=== PATIENT | female | born 1960 | race Caucasian/White ===

== ENCOUNTER 2024-03-30 09:13 | Outpatient (AMB) | payer OTHER, SELFPAY ==
--- NOTE | 2024-03-30 09:20 | A.OFFVIS_ITS ---
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 Noriega. She has a past medical history of alcohol abuse with episodic drinking behavior, morbid obesity, hyperlipidemia, hypertension, type 2 diabetes, and nephrolithiasis. She presents to the office today as a new patient for ongoing left-sided flank pain and nephrolithiasis. In discussion with the patient today she reports having followed up with [facility] last year and underwent left-sided ureteroscopy for a 7 mm stone and has since had ongoing left-sided flank pain. She reports following up with her PCP and discussing 2nd opinion at which time urology referral was made. She continues to report intermittent left-sided flank pain that she feels radiates to her left upper abdominal area. She discusses at length and becomes tearful throughout today's visit discussing ongoing issue she is having at home with her . We discussed referral to therapy for further assessment evaluation however patient declines. Patient was provided information regarding resources if she would like. 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 In office urinalysis results reviewed with the patient today. We discussed at length potential causes of left-sided flank pain she is experiencing. She otherwise denies urinary urgency, urinary frequency, inco ntinence, nocturia, hematuria, dysuria, foul smelling urine, changes to urinary stream, fever, and or chills. She is happy with her current voiding parameters. We discussed obtaining retroperitoneal ultrasound for further assessment evaluation. She otherwise offers no other issues or concerns at this time. [facility] Medical History Alcohol abuse, episodic drinking behavior Chronic bilateral low back pain with bilateral sciatica Morbid obesity Mixed hyperlipidemia Essential hypertension Type 2 diabetes mellitus without complication Review of Systems Const All systems reviewed & are unremarkable except as noted in HPI and below Physical Exam Const General: cooperative, comfortable, no acute distress, well developed, alert, awake and poor hygiene Nutritional Appearance: overweight Orientation/consciousness: patient oriented x3 Limitations: no limitations HEENT Head: Yes normal to inspection, Yes normocephalic and Yes atraumatic Ears: hearing grossly normal bilaterally Eyes General: appearance normal, both eyes and all related structures Neck Neck: Yes normal visual inspection and Yes trachea midline Chest Chest palpation & inspection: normal inspection of the chest Resp Effort & Inspection: normal respiratory effort and able to speak in complete sentences Cardio Rate: regular rate GI Inspection: Yes normal to inspection General: Yes no CVA tenderness Back/Spine/Pelvis Back: no CVA tenderness Skin General skin exam: no rashes or lesions noted Neuro General: patient oriented x3 Extrem General: Yes normal to inspection Psych Appearance: grossly normal Mental Status: mental status grossly normal Speech and movement: Normal speech and movement present and Clear speech present Affect: Sad affect present Attitude: cooperative Thought process: Normal thought process present Thought content: Normal thought content present Insight: Fair insight present (Psych) Judgement: Fair judgement present (Psych) Results AMB Urinalysis, Automated UA Leukoctes 15 Cyndy/uL Last Edit by Arlene Nunez on 03/30/24 09:56 UA Nitrite Last Edit by Arlene Nunez on 03/30/24 09:56 UA Urobilinogen 0.2 mg/dL Last Edit by Arlene Nunez on 03/30/24 09:56 UA Protein 15 mg/dL Last Edit by Arlene Nunez on 03/30/24 09:56 UA pH 6.0 Last Edit by Arlene Nunez on 03/30/24 09:56 UA Blood 0 Sascha/uL Last Edit by Arlene Nunez on 03/30/24 09:56 UA Specific [place] 1.015 Last Edit by Arlene Nunez on 03/30/24 09:56 UA Ketone Negative Last Edit by Arlene Nunez on 03/30/24 09:56 UA Bilirubin 0 mg/dL Last Edit by Arlene Nunez on 03/30/24 09:56 UA Glucose 0 mg/dL Last Edit by Arlene Nunez on 03/30/24 09:56 Results Reviewed Results Reviewed: Laboratory Last Values Urine pH (Auto) 6.0 03/30/24 09:55 Specific [place] (Auto) 1.015 03/30/24 09:55 Urine Protein (Auto) 15 mg/dL 03/30/24 09:55 Glucose (UA)(Auto) 0 mg/dL 03/30/24 09:55 Urine Ketones (Auto) Negative 03/30/24 09:55 Urine Blood (Auto) 0 Sascha/uL 03/30/24 09:55 Urine Bilirubin (Auto) 0 mg/dL 03/30/24 09:55 Urine Urobilinogen (Auto) 0.2 mg/dL 03/30/24 09:55 Leukocyte Esterase (Auto) 15 Cyndy/uL 03/30/24 09:55 Assessment & Plan Assessment & Plan (1) Flank pain: Code(s): R10.9 - Unspecified abdominal pain Category: Medical (2) Nephrolithiasis: Code(s): N20.0 - Calculus of kidney Category: Medical Plan In office urinalysis results reviewed with the patient today; as noted above; no microscopic hematuria noted today. We discussed at length potential causes of microscopic hematuria. Will obtain retroperitoneal ultrasound for further assessment evaluation. Discussed potential causes of left-sided flank pain patient continues to experience. Information provided regarding behavioral therapy. ([facility] [phone], [facility] [phone], and [facility] a change [phone]) Discussed, educated, and stressed the importance of adequate hydration relation to history of nephrolithiasis as well as overall health and well-being. Discussed adding 1 oz of lemon juice to water daily. Follow-up in 1-3 months with imaging to be completed prior; or sooner with any issues, concerns, and or questions. Orders: Orders US retroperitoneal comp Today N20.0 - Calculus of kidney, R10.9 - Unspecified abdominal pain AMB Urinalysis Automated Today Z13.9 - Encounter for screening, unspecified Patient Instructions: The patient had an opportunity to ask questions regarding the treatment plan. All questions were answered. Physical exam, labs, and imaging were discussed and reviewed in detail. As well as risks, benefits, and discussion of treatment choices. No major barriers to understanding were identified. The patient expressed understanding and agreement with the above treatment plan. The patient was made aware they should contact our office by phone for worsening of their current condition, the appearance of new symptoms, or with any questions or concerns. Compliance is encouraged with any medications and follow up testing that is ordered. It is a privilege to be allowed the opportunity to participate in? your urological care.? Again, if you have any questions or concerns If you have any questions or concerns please do not hesitate to contact me. The office is [phone]. This note is constructed using voice recognition software. While every effort has been made to ensure accuracy surgeon/president errors may have been included. Yours sincerely, PAVAN Gibbons Coding Level of Care Code New Pt Level 3 (80069) Diagnoses Flank pain R10.9 Nephrolithiasis N20.0
== END 2024-03-30 09:47 | disposition home or self-care (01) ==
PROVIDERS: PCP Family Medicine; Visit Provider Nurse Practitioner Family
DX: R10.9 Unspecified abdominal pain (principal); N20.0 Calculus of kidney; Z13.9 Encounter for screening, unspecified
CPT/HCPCS: 99203

== ENCOUNTER → 2024-03-30 09:13 | Outpatient (BNVA) | payer OTHER, SELFPAY | PROVIDERS: PCP Family Medicine; Visit Provider Nurse Practitioner Family | DX: R31.29 Other microscopic hematuria (principal); R10.9 Unspecified abdominal pain; N20.0 Calculus of kidney | CPT/HCPCS: 81003 ==

== ENCOUNTER 2024-04-30 09:56 | Outpatient (REF) | payer OTHER, SELFPAY ==
--- OUTSIDE RECORDS SUMMARY | 2024-04-30 09:59 | XMS_ITS ---
Author Organization [facility], Address [address] [place] [address] Care Team Providers Care Health Safety Coordinator Name Role Phone Eric Chávez [phone] ALLERGIES, ADVERSE REACTIONS, ALERTS Substance Code Code System Type Reaction Severity Status Start Date End Date Penicillins RxNorm Drug allergy () 0 MEDICATIONS Medication Code Code System Start Date Stop Date Route Dosage Directions Fill Instructions metformin HCl RxNorm 024 1 albuterol sulfate 0 RxNorm inhalation sertraline HCl RxNorm 07/15/19 24 1 amlodipine 0 RxNorm oral montelukast sodium RxNorm 2022 1 Bactrim DS 200243 RxNorm 12/14/19 24 oral 1 hydrochlorothiazid e RxNorm 024 Spiriva Respimat 0 RxNorm inhalation PROBLEMS Problem Name Code Code System Start Date End Date Stat us Unspecified asthma 413984035 [facility] A ctive Major depressive disorder, recurrent, unspecified 11920594 [facility] Activ e Essential (primary) hypertension 61058978 [facility] Active Type 2 diabetes mellitus 48775556 [facility] Active Hematuria, unspecified 08654349 [facility] 12/14/2023 Active Pyuria 8847508 [facility] 12/14/2023 Active ENCOUNTERS Encounter Diagnosis Code Code System Date Stat us Hematuria, unspecified 13163788 [facility] 12/14/2023 Ac tive Pyuria 6601954 [facility] 12/14/2023 Active IMMUNIZATIONS * None VITAL SIGNS Code Code System Vitals Name Date Value and Un its 8462-4 [facility] Blood Pressure-Diastolic 12/14/2023 85 mmHg 8480-6 [facility] Blood Pressure-Systolic 12/14/2023 1 27 mmHg 8867-4 [facility] Heart Rate 12/14/2023 90 /min 9279-1 [facility] Respiratory Rate 12/14/2023 18 /min 8310-5 [facility] Body Temperature 12/14/2023 97.4 F 07278-7 [facility] Oxygen Saturation 12/14/2023 95 % SOCIAL HISTORY * None PROCEDURES * None RESULTS Test Code Code System Description Result Value Date Ref erence Range [facility] Glucose Negative 12/14/2023 [facility] Bilirubin Negative 12/14/2023 [facility] Ketone Negative 12/14/2023 [facility] Specific [place] 1.30347 12/14/2023 [facility] Blood 1.44588 12/14/2023 [facility] pH 6.59609 12/14/2023 [facility] Protein Negative 12/14/2023 [facility] Urobilinogen 0.60771 E.U./dL 12/14/2023 [facility] Nitrite Negative 12/14/2023 [facility] Leukocytes 1.64156 12/14/2023 [facility] Color [place] 12/14/2023 [facility] Clarity Cloudy 12/14/2023 630-4 [facility] Urine Culture, Routine Final report 12/14/2023 [facility] Result 1 Results Receive d - See Detailed Notes 12/14/2023 MEDICAL EQUIPMENT * Patient has no history of implantable devices ASSESSMENT Assessment You were evaluated for the r ecurrent episode of flank pain, back pain, with an abnormal urinalysis. I am starting you on antibiotics, however, given your episodes of this in the past with negative workup it is quite possible the urine culture is going to be negative and this is not an infectious cause.Take the antibiotics for the time being until the culture returns. If the culture is negative I recommend stopping the antibiotics.I would speak with your primary care doctor or a urologist regarding workup for a condition called loin pain hematuria syndrome, which is a diagnosis of exclusion after ruling out other causes of the pain and hematuria. If you develop a fever or worsening symptoms please go to the ER. TREATMENT PLAN Type Description Date MEDICATION Take 800-160 mg tablet 12/14/2023 APPOINTMENT If not feeling domonique r in 3 day(s), please see your primary care physician. If you do not have a primary care physician, please return to this clinic. 12/14/2023 Labs Tests Test Name Code Code System Date Clinitek Urinalysis, automated, without microscopy 810 03 CPT 12/14/2023 Urine Culture, Routine 74560 CPT 024 GOALS * None HEALTH CONCERNS * No Health Concerns FUNCTIONAL AND COGNITIVE STATUS * None CONSULTATION NOTES * None DISCHARGE SUMMARY NOTES * None HISTORY AND PHYSICAL NOTES * None IMAGING NOTES * None LABORATORY REPORT NARRATIVE NOTES * None PATHOLOGY REPORT NARRATIVE NOTES * None PROGRESS NOTES * None
== END 2024-04-30 09:57 | disposition home or self-care (01) ==
LOC: HO.US 09:56
PROVIDERS: PCP Family Medicine; Visit Provider Nurse Practitioner Family
DX: N20.0 Calculus of kidney (principal); R10.9 Unspecified abdominal pain
CPT/HCPCS: 76770

== ENCOUNTER 2024-05-27 10:42 | Outpatient (AMB) | payer OTHER, SELFPAY ==
--- NOTE | 2024-05-27 10:45 | MHC.OFFVIS ---
Intake Visit Reasons: 2m/US(set) Intake Note: Patient is present for Ultrasound results Urology Med: None Antibiotic Allergies: Penicillins Blood Thinner: None Tool Adjuster Required: No Accompanied by: Self / Same As Patient Allergies Penicillins Allergy (Verified 05/27/24 10:58) rash Medication List - Last Reconciled 05/27/24 by PAVAN Gibbons clonidine HCl 0.1 mg PO BID hydrochlorothiazide 12.5 mg PO DAILY metformin 500 mg PO BID montelukast 10 mg PO DAILY semaglutide (Ozempic) mg subcut sertraline 100 mg PO DAILY HPI Comments Details: Taty is a 63-year-old female patient of Dr. Noriega. She has a past medical history of alcohol abuse with episodic drinking behavior, morbid obesity, hyperlipidemia, hypertension, type 2 diabetes, and nephrolithiasis. She presents to the office today for follow-up. Of note, patient was seen approximately 2 months ago as a new patient for nephrolithiasis and ongoing flank pain she has been experiencing. Recent unofficial retroperitoneal ultrasound results reviewed with the patient today. Right kidney with no calculi, lesions, or hydronephrosis. Left kidney with nonobstructing mid pole 3 mm. Pre void bladder volume is a proximally 360 mL. Postvoid bladder volume is a proximally 25 mL. Question elongated bladder. Incidental question right uterus fibroid. She continues to experience bilateral flank pain. In office urinalysis results reviewed with the patient today. We discussed at length potential causes of bilateral flank pain. We discussed and stressed the importance of adequate hydration relation to nephrolithiasis as well as overall health and well-being. She otherwise denies any bothersome urinary issues. She denies urinary urgency, urinary frequency, incontinence, nocturia, hematuria, dysuria, foul smelling urine, changes to urinary stream, fever, and or chills. She is happy with her current voiding parameters. She otherwise offers no other issues or concerns at this time. [facility] Medical History Alcohol abuse, episodic drinking behavior Chronic bilateral low back pain with bilateral sciatica Morbid obesity Mixed hyperlipidemia Essential hypertension Type 2 diabetes mellitus without complication Review of Systems Const All systems reviewed & are unremarkable except as noted in HPI and below Physical Exam Const General: cooperative, comfortable, no acute distress, well developed, alert, awake and poor hygiene Nutritional Appearance: overweight Orientation/consciousness: patient oriented x3 Limitations: no limitations HEENT Head: Yes normal to inspection, Yes normocephalic and Yes atraumatic Ears: hearing grossly normal bilaterally Eyes General: appearance normal, both eyes and all related structures Neck Neck: Yes normal visual inspection and Yes trachea midline Chest Chest palpation & inspection: normal inspection of the chest Resp Effort & Inspection: normal respiratory effort and able to speak in complete sentences Cardio Rate: regular rate GI Inspection: Yes normal to inspection General: Yes no CVA tenderness Back/Spine/Pelvis Back: no CVA tenderness Skin General skin exam: no rashes or lesions noted Neuro General: patient oriented x3 Extrem General: Yes normal to inspection Psych Appearance: grossly normal Mental Status: mental status grossly normal Speech and movement: Normal speech and movement present and Clear speech present Affect: Sad affect present Attitude: cooperative Thought process: Normal thought process present Thought content: Normal thought content present Insight: Fair insight present (Psych) Judgement: Fair judgement present (Psych) Results AMB Urinalysis, Automated UA Leukoctes 0 Cyndy/uL Last Edit by Leslie Villarreal [facility] on 05/27/24 10:56 UA Nitrite Negative Last Edit by Leslie Villarreal [facility] on 05/27/24 10:56 UA Urobilinogen 0.2 mg/dL Last Edit by Leslie Villarreal [facility] on 05/27/24 10:56 UA Protein 0 mg/dL Last Edit by Leslie Villarreal [facility] on 05/27/24 10:56 UA pH 6.5 Last Edit by Leslie Villarreal [facility] on 05/27/24 10:56 UA Blood 0 Sascha/uL Last Edit by Leslie Villarreal [facility] on 05/27/24 10:56 UA Specific [place] 1.010 Last Edit by Leslie Villarreal [facility] on 05/27/24 10:56 UA Ketone Negative Last Edit by Leslie Villarreal [facility] on 05/27/24 10:56 UA Bilirubin 0 mg/dL Last Edit by Leslie Villarreal [facility] on 05/27/24 10:56 UA Glucose 0 mg/dL Last Edit by Leslie Villarreal [facility] on 05/27/24 10:56 Results Reviewed Results Reviewed: Laboratory Last Values Urine pH (Auto) 6.5 05/27/24 10:51 Specific [place] (Auto) 1.010 05/27/24 10:51 Urine Protein (Auto) 0 mg/dL 05/27/24 10:51 Glucose (UA)(Auto) 0 mg/dL 05/27/24 10:51 Urine Ketones (Auto) Negative 05/27/24 10:51 Urine Blood (Auto) 0 Sascha/uL 05/27/24 10:51 Urine Nitrite (Auto) Negative 05/27/24 10:51 Urine Bilirubin (Auto) 0 mg/dL 05/27/24 10:51 Urine Urobilinogen (Auto) 0.2 mg/dL 05/27/24 10:51 Leukocyte Esterase (Auto) 0 Cyndy/uL 05/27/24 10:51 Assessment & Plan Assessment & Plan (1) Flank pain: Code(s): R10.9 - Unspecified abdominal pain Category: Medical (2) Nephrolithiasis: Code(s): N20.0 - Calculus of kidney Category: Medical Plan In office urinalysis results reviewed with the patient today; as noted above. We discussed at length potential causes of nephrolithiasis as well as flank pain. We discussed seeking medical treatment for worsening symptoms. Will continue with surveillance monitoring of nonobstructing calculi. We discussed at length importance of adequate hydration relation to nephrolithiasis as well as overall health and well-being. Patient reports be happy with current voiding parameters. She denies any bothersome urinary issues and or UTI like symptoms. Discussed following up with dish machine operator regarding question right uterine fibroid Will obtain renal ultrasound in 6 months for surveillance monitoring. Follow-up in 6 months with imaging to be completed prior; or sooner with any issues, concerns, and or questions. Orders: Orders AMB Urinalysis Automated Today Z13.9 - Encounter for screening, unspecified US renal BI 6 Months N20.0 - Calculus of kidney Patient Instructions: The patient had an opportunity to ask questions regarding the treatment plan. All questions were answered. Physical exam, labs, and imaging were discussed and reviewed in detail. As well as risks, benefits, and discussion of treatment choices. No major barriers to understanding were identified. The patient expressed understanding and agreement with the above treatment plan. The patient was made aware they should contact our office by phone for worsening of their current condition, the appearance of new symptoms, or with any questions or concerns. Compliance is encouraged with any medications and follow up testing that is ordered. It is a privilege to be allowed the opportunity to participate in? your urological care.? Again, if you have any questions or concerns If you have any questions or concerns please do not hesitate to contact me. The office is [phone]. This note is constructed using voice recognition software. While every effort has been made to ensure accuracy tree farmer errors may have been included. Yours sincerely, PAVAN Gibbons Coding Level of Care Code Est Pt Level 3 (45523) Diagnoses Flank pain R10.9 Nephrolithiasis N20.0
== END 2024-05-27 11:09 | disposition home or self-care (01) ==
PROVIDERS: PCP Family Medicine; Visit Provider Nurse Practitioner Family
DX: R10.9 Unspecified abdominal pain (principal); N20.0 Calculus of kidney; Z13.9 Encounter for screening, unspecified
CPT/HCPCS: 99213

== ENCOUNTER → 2024-05-27 10:42 | Outpatient (BNVA) | payer OTHER, SELFPAY | PROVIDERS: PCP Family Medicine; Visit Provider Nurse Practitioner Family | DX: R10.9 Unspecified abdominal pain (principal); N20.0 Calculus of kidney | CPT/HCPCS: 81003 ==

== ENCOUNTER 2024-11-15 10:21 | Outpatient (REF) | payer OTHER, SELFPAY ==
--- NOTE | ~2024-11-15 | US_ITS ---
CLINICAL HISTORY: N20.0 - Calculus of kidney US of kidneys Comparison: None Findings: Right kidney is normal in size, echogenicity and morphology, 12.7 cm in length. No calculus, mass or hydronephrosis. Left kidney is normal in size, echogenicity and morphology, 12.0 cm in length. No mass or hydronephrosis. 4 mm calculus at the midpole. Limited color Doppler demonstrates unremarkable bilateral blood flow. Impression: Nonobstructing left nephrolithiasis. This document has been electronically signed by: Amy Cramer MD on 11/15/2024 15:32:09
--- OUTSIDE RECORDS SUMMARY | 2024-11-15 11:12 | XMS_ITS | Data Portability ---
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 She was on propranolol ER 80 mg daily at her last visit but she was taken off of this due to asthma flareup in mid February 2021. Due to hypertension, she was placed on amlodipine by her PCP. She has not had a migraine for more than 6 months, predating the change which is the last time she used sumatriptan which is prescribed by her PCP. We discussed that amlodipine is a calcium channel noble and while we would normally choose verapamil from a headache standpoint, it may be contributing to the improved headaches or she may now be back to her preconcussion headache baseline which was less frequent. In any event, we agreed not to make any medication changes for her migraines and to defer to PCP for ongoing amlodipine for her hypertension and sumatriptan for breakthrough migraine with plan to follow-up as needed. However, her neurologic examination is notable for slightly wide-based stance, decreased balance with tandem gait, brisk deep tendon reflexes with a positive Arabella's response on the left and equivocal plantar reflexes on the left, mute on the right so we discussed obtaining labs such as B12, copper and vitamin D for now with follow-up in 1 month and possibly obtaining an MRI of the cervical spine to rule out cervical myelopathy if no other explanation. She does report that she has had the low back and sacrum evaluated by imaging in the past and does have degenerative arthritis. We reviewed her current medications Amlodipine 5mg daily Sertraline 100 mg daily Montelukast 10 mg daily Wixela 1 puff Spiriva 1.25mcg Albuturol inhaler prn Albuturol nebulizer prn Sumatriptan 100mg prn Clonidine 0.1prn To review: 07/25/2021: Postconcussive headaches have improved and she has not had a breakthrough migraine for at least 6 months. We discussed that we will defer to PCP for ongoing management. She is off of propranolol which we had started for migraine prevention but was discontinued due to asthma flareup and is now on amlodipine for hypertension. 07/25/21: Neurologic examination is notable for slight decreased balance with brisk DTRs at the lower extremities with possible flexor response on the left and a positive Arabella's on the left. We discussed evaluating for metabolic cause but may need to consider a cervical myelopathy. 07/25/20: Brain MRI white matter changes may relate to migraine. They may also relate to early signs of small vessel cerebrovascular change. I defer to primary care for continued optimal monitoring of risk factors: Hypertension, diabetes, sleep apnea, hypercholesterolemia. 07/25/20: Neurological exam has been normal except for reduced sensation at the top and bottom of the right foot and toes. Conceivably, her severe sprain stretched sensory tibial and peroneal nerves and caused injury. Alternatively, there is residual swelling causing this numbness. Visibly, I cannot see that there is significantly edema around the right ankle, now, 4 months out from injury. This is not a chief complaint. Her gait exam is normal. There has been no toe or ankle weakness. I will not pursue studies. PLAN Taty May July 25, 2021 FOR POSTCONCUSSIVE MIGRAINE TREATMENT: CONTINUE Physical therapy home exercises that you have learned for headaches as follows (you remain in physical therapy but they have moved on to other issues then headache) to serve as an additional headache preventative combined with the propranolol: Muscles involved include left-sided suboccipital muscles, sternocleidomastoid and temporalis. I am not recommending a new preventative medication as you have not had a migraine for at least 6 months. FOR BREAKTHROUGH MIGRAINE Continue sumatriptan from your PCP FOR THE ABNORMAL NEUROLOGIC EXAM FINDINGS Please go to the laboratory for B12, copper and vitamin D levels Follow-up in 1 month to go over lab findings regarding the abnormal exam findings. We will defer to your PCP for migraine management for now but if you have any worsening we would be happy to reassess it. I have reviewed chart note and agree with contents and with assessment/plan in particular. Eric Spears MD, PhD [facility] If laboratories are normal, we will repeat reflex exam with the patient lying supine the most reliable position for plantar testing 08/01/21: Further discussed with Dr. Spears: Vitamin E may cause metabolic myelopathy, it appears she has not yet had the above labs, vitamin E added Not available 08/01/2021 11:27:30 08/22/2021 08/22/2021 IMPRESSION: Essentially resolved symptoms of Postconcussive syndrome presenting in February 2017 with headache worsened from baseline, dizziness and memory issues now improved. Abnormal neurologic examination July 25 2021 with wide-based stance, decreased balance with tandem gait, brisk deep tendon reflexes with a positive Arabella's response on the left and equivocal plantar reflexes on the left, mute on the right. August 22 2021: Copper is slightly elevated which would not explain a myelopathy (low would be expected) but may indicate a zinc deficiency which can cause mental status changes. We will obtain a zinc level and plan supplementation if low. Vitamin D is low which would not directly explain a myelopathy but was obtained as part of the screening and can contribute to bone pain muscle weakness. We will start with supplementation of vitamin D2 and counseled her on D3 supplementation but will defer to her PCP for any further management. We will have her follow-up in the office to repeat the gait and reflex examination in particular and if persistently abnormal will move forward with obtaining MRI of the C-spine to rule out myelopathy. No changes to Migraine management: We reviewed that concussive symptoms seem to have resolved off of daily preventative medication and that she rarely requires sumatriptan which is managed by her PCP -she may follow-up with us as needed for this issue. To review: 07/25/2021: Postconcussive headaches have improved and she has not had a breakthrough migraine for at least 6 months. We discussed that we will defer to PCP for ongoing management. She is off of propranolol which we had started for migraine prevention but was discontinued due to asthma flareup and is now on amlodipine for hypertension. 07/25/21: Neurologic examination is notable for slight decreased balance with brisk DTRs at the lower extremities with possible flexor response on the left and a positive Arabella's on the left. We discussed evaluating for metabolic cause but may need to consider a cervical myelopathy. 07/25/20: Brain MRI white matter changes may relate to migraine. They may also relate to early signs of small vessel cerebrovascular change. I defer to primary care for continued optimal monitoring of risk factors: Hypertension, diabetes, sleep apnea, hypercholesterolemia. 07/25/20: Neurological exam has been normal except for reduced sensation at the top and bottom of the right foot and toes. Conceivably, her severe sprain stretched sensory tibial and peroneal nerves and caused injury. Alternatively, there is residual swelling causing this numbness. Visibly, I cannot see that there is significantly edema around the right ankle, now, 4 months out from injury. This is not a chief complaint. Her gait exam is normal. There has been no toe or ankle weakness. I will not pursue studies. PLAN Taty May August 22, 2021 FOR THE ABNORMAL NEUROLOGIC EXAM FINDINGS Your copper level was high which would not explain the myelopathy but may indicate a zinc deficiency. -Please go to [facility] [address] [place] [address] [place] [address] Ph. , to check zinc level VITAMIN D DEFICIENCY START We will do an initial supplementation dose for 8 weeks. We will also do a maintenance dose indefinitely afterwards, as your body has shown that a maintenance dose is needed to keep you from vitamin D deficiency. Vitamin D2, 50,000 international units, 8 capsules, no refills, one capsule every week for 8 weeks Also, start maintenance dose, either right away or when you finish the vitamin D2 supplementation: Vitamin D3, 1000 units once a day, with meals. 1000 unit capsules are available [id number] in your pharmacy. Ask you're pharmacist to help you find this vitamin. FOR POSTCONCUSSIVE MIGRAINE TREATMENT: CONTINUE Physical therapy home exercises that you have learned for headaches as follows (you remain in physical therapy but they have moved on to other issues then headache) to serve as an additional headache preventative combined with the propranolol: Muscles involved include left-sided suboccipital muscles, sternocleidomastoid and temporalis. I am not recommending a new preventative medication as you have not had a migraine for at least 6 months. FOR BREAKTHROUGH MIGRAINE Continue sumatriptan from your PCP Please follow-up in person repeat your neurologic examination with a focus on your gait and reflex exam Discussed with Dr. Spears, assessment and plan were developed with him. I have reviewed chart note, discussed the situation with Corinne Harrison neurology YESY, and agree with note contents and with assessment/plan in particular. Eric Spears MD, PhD [email or web address] Not available 09/06/2021 21:29:04 09/19/2021 09/19/2021 IMPRESSION: Essentially resolved symptoms of Postconcussive syndrome presenting in February 2017 with headache worsened from baseline, dizziness and memory issues now improved. Abnormal neurologic examination July 25 2021 with wide-based stance, decreased balance with tandem gait, brisk deep tendon reflexes with a positive Arabella's response on the left and equivocal reflexes on the left, mute on the right. Repeat examination Sep 19 2021: Slightly wide-based gait with slight loss of balance with tandem gait, bilateral Arabella's response and a clearly upgoing toe on the left side with repeat examination and spine. Laboratory work-up has not revealed a cause for metabolic myelopathy. CURRENTLY Sep 19 2021. We discussed that the neck step will be to obtain a a cervical spine to rule out cervical myelopathy. After that, if a myelopathy is shown, we would refer her to a neurosurgeon. We also discussed that this may take some time as it is not an emergency because she does not have weakness or bowel or bladder problems but she is beginning to have gait difficulty and it is meant to prevent any worsening. If there is a myelopathic signal on the cervical spine, we would defer to the neurosurgeons whether this would warrant surgery or surveillance. Vitamin D deficiency with prescribed weekly supplement that was taken daily for 8 days: We had previously discussed on the telephone that the maximal vitamin D after oral supplementation is 1 month and symptomatic vitamin D but may be up to 2 months. Her vitamin D level 18 up from 6. While it is still low, there is a chance that she could have increase over the next month. I asked her to continue to hold daily vitamin D3 resume [id number] vitamin D3 weeks which will be 2 months after the weekly supplementation of vitamin D2. We will then defer to PCP, she has a follow-up in November. Headache. She has now had a sinus headache which is her first headache since coming off of the propranolol. She has managed with [id number]-[id number] medication. She does not wish to resume any preventative for the time being. Zinc level, which was ordered previously, is still pending. PREVIOUSLY August 22 2021: Copper is slightly elevated which would not explain a myelopathy (low would be expected) but may indicate a zinc deficiency which can cause mental status changes. We will obtain a zinc level and plan supplementation if low. Vitamin D is low which would not directly explain a myelopathy but was obtained as part of the screening and can contribute to bone pain muscle weakness. We will start with supplementation of vitamin D2 and counseled her on D3 supplementation but will defer to her PCP for any further management. We will have her follow-up in the office to repeat the gait and reflex examination in particular and if persistently abnormal will move forward with obtaining MRI of the C-spine to rule out myelopathy. No changes to Migraine management: We reviewed that concussive symptoms seem to have resolved off of daily preventative medication and that she rarely requires sumatriptan which is managed by her PCP -she may follow-up with us as needed for this issue. To review: September 19-2021: Abnormal Arabella's and left sided Babinski. Slightly wide gait and slight loss of balance with tandem gait. We will pursue C-spine MRI to rule out myelopathy August 22 2021: Vitamin D deficiency, but no metabolic cause of myelopathy 07/25/2021: Postconcussive headaches have improved and she has not had a breakthrough migraine for at least 6 months. We discussed that we will defer to PCP for ongoing management. She is off of propranolol which we had started for migraine prevention but was discontinued due to asthma flareup and is now on amlodipine for hypertension. 07/25/21: Neurologic examination is notable for slight decreased balance with brisk DTRs at the lower extremities with possible flexor response on the left and a positive Arabella's on the left. We discussed evaluating for metabolic cause but may need to consider a cervical myelopathy. 07/25/20: Brain MRI white matter changes may relate to migraine. They may also relate to early signs of small vessel cerebrovascular change. I defer to primary care for continued optimal monitoring of risk factors: Hypertension, diabetes, sleep apnea, hypercholesterolemia. 07/25/20: Neurological exam has been normal except for reduced sensation at the top and bottom of the right foot and toes. Conceivably, her severe sprain stretched sensory tibial and peroneal nerves and caused injury. Alternatively, there is residual swelling causing this numbness. Visibly, I cannot see that there is significantly edema around the right ankle, now, 4 months out from injury. This is not a chief complaint. Her gait exam is normal. There has been no toe or ankle weakness. I will not pursue studies. PLAN Taty May September 19, 2021 FOR THE ABNORMAL NEUROLOGIC EXAM FINDINGS We will obtain MRI of the cervical spine without gadolinium [facility] ([facility]) [address] [place] [address] Ph. , I anticipate that they will call you. Please contact us in the next week if you have not heard from them to be scheduled. VITAMIN D DEFICIENCY After 8 consecutive days Vitamin D2, 50,000 international units your vitamin D level has improved but is still low. To avoid any vitamin D toxicity, please hold daily supplementation for 3 weeks and then resume [id number] daily vitamin D supplementation. I do not expect that you will have any problem with regular foods supplemented with vitamin D. Please discuss management with your PCP when you have your follow-up in November. FOR POSTCONCUSSIVE MIGRAINE TREATMENT: CONTINUE Physical therapy home exercises that you have learned for headaches as follows (you remain in physical therapy but they have moved on to other issues then headache) to serve as an additional headache preventative combined with the propranolol: Muscles involved include left-sided suboccipital muscles, sternocleidomastoid and temporalis. I am not recommending a new preventative medication as you have not had a migraine for at least 6 months. FOR BREAKTHROUGH MIGRAINE Continue sumatriptan from your PCP Seen with Dr. Spears, assessment and plan were developed with him. I have reviewed chart note, discussed the situation with Corinne Harrison neurology YESY, and agree with note contents and with assessment/plan in particular. Eric Spears MD, PhD [facility] Not available 09/24/2021 15:07:06 10/25/2021 10/25/2021 IMPRESSION: Essentially resolved symptoms of Postconcussive syndrome presenting in February 2017 with headache worsened from baseline, dizziness and memory issues now improved. Abnormal neurologic examination July 25 2021 with wide-based stance, decreased balance with tandem gait, brisk deep tendon reflexes with a positive Arabella's response on the left and equivocal reflexes on the left, mute on the right. Repeat examination Sep 19 2021: Slightly wide-based gait with slight loss of balance with tandem gait, bilateral Arabella's response and a clearly upgoing toe on the left side with repeat examination and spine. Laboratory work-up has not revealed a cause for metabolic myelopathy. Subsequent MRI of the cervical spine without cord compression and only mild spondylosis. CURRENTLY October 25, 2021: No clear explanation of her abnormal exam findings. She denies a history of significant alcohol use to explain abnormal examination. We discussed referral to physical therapy for high-level balance and gait training. We will also obtain a brain MRI to assess for any underlying ischemia. Of note, she has had a previous MRI of the brain in 2017 that showed nonspecific supratentorial white matter changes likely due to small vessel cerebrovascular changes. It is possible, she could be developing a vascular parkinsonism. To review: September 19-2021: Abnormal Arabella's and left sided Babinski. Slightly wide gait and slight loss of balance with tandem gait. We will pursue C-spine MRI to rule out myelopathy August 22 2021: Vitamin D deficiency, but no metabolic cause of myelopathy 07/25/2021: Postconcussive headaches have improved and she has not had a breakthrough migraine for at least 6 months. We discussed that we will defer to PCP for ongoing management. She is off of propranolol which we had started for migraine prevention but was discontinued due to asthma flareup and is now on amlodipine for hypertension. 07/25/21: Neurologic examination is notable for slight decreased balance with brisk DTRs at the lower extremities with possible flexor response on the left and a positive Arabella's on the left. We discussed evaluating for metabolic cause but may need to consider a cervical myelopathy. 07/25/20: Brain MRI white matter changes may relate to migraine. They may also relate to early signs of small vessel cerebrovascular change. I defer to primary care for continued optimal monitoring of risk factors: Hypertension, diabetes, sleep apnea, hypercholesterolemia. 07/25/20: Neurological exam has been normal except for reduced sensation at the top and bottom of the right foot and toes. Conceivably, her severe sprain stretched sensory tibial and peroneal nerves and caused injury. Alternatively, there is residual swelling causing this numbness. Visibly, I cannot see that there is significantly edema around the right ankle, now, 4 months out from injury. This is not a chief complaint. Her gait exam is normal. There has been no toe or ankle weakness. I will not pursue studies. PLAN Taty May October 25, 2021 FOR THE ABNORMAL NEUROLOGIC EXAM FINDINGS We will obtain MRI of the Brain without gadolinium [facility] ([facility]) [address] [place] [address] Ph. , I anticipate that they will call you. Please contact us in the next week if you have not heard from them to be scheduled. VITAMIN D DEFICIENCY We supplemented vitamin D D2 which was taken daily for 8 days rather than weekly. Initial [place] vitamin D is went from 6-18. Is now been 2 months and so I do not expect that you will have any further potential side effects. You can likely resume daily supplement of [id number] vitamin D3 as we discussed today but I defer to your PCP. FOR POSTCONCUSSIVE MIGRAINE TREATMENT: I am referring you to physical therapy for high-level balance and gait training. [address] [address] Ph. , Please call them for an appointment Please also continue Physical therapy home exercises that you have learned for headaches as follows to serve as an additional headache preventative involving muscles involved include left-sided suboccipital muscles, sternocleidomastoid and temporalis. I am not recommending a new preventative medication as you have not had a migraine for at least 6 months. FOR BREAKTHROUGH MIGRAINE You have sumatriptan from your PCP which you have not required recently. I am recommending that you hold off on taking it until we have your brain MRI and can go over the results as we discussed today. Discussed with Dr. Spears, impression and plan were developed with him. I have reviewed chart note, discussed the situation with Corinne Harrison neurology PA, and agree with note contents and with assessment/plan in particular. Eric Spears MD, PhD [facility] Not available 10/30/2021 18:07:13 01/31/2022 01/31/2022 IMPRESSION: --Essentially resolved symptoms of Postconcussive syndrome presenting in February 2017 with headache worsened from baseline, dizziness and memory issues now improved. --August 22 2021: Vitamin D deficiency, but no metabolic cause of myelopathy --MRI of the cervical spine September 30, 2021 without cord compression and only mild spondylosis. --Right miller radiata 4 mm focus of increased T2 signal on December 02, 2021 MRI brain, new since 2016 --Neurological examinations: Abnormal neurologic examination July 25 2021 with wide-based stance, decreased balance with tandem gait, brisk deep tendon reflexes with a positive Arabella's response on the left and equivocal reflexes on the left, mute on the right. Repeat examination Sep 19 2021: Slightly wide-based gait with slight loss of balance with tandem gait, bilateral Arabella's response and a clearly upgoing toe on the left side with repeat examination and spine. Laboratory work-up has not revealed a cause for metabolic myelopathy. The brain MRI evidence of right miller radiata 4 mm focus of increased T2 signal is nonspecific. Dictation mentions that it is consistent with small vessel cerebrovascular disease and I agree. If this were the case, no intervention would be indicated except for continued optimal management of risk factors for small vessel cerebrovascular disease such as hypertension, diabetes, hypercholesterolemia and sleep apnea. However, with such an isolated small region of increased T2 signal, a small asymptomatic subcortical infarct cannot be excluded. They do not mention reduced T1 signal to make this more likely but the absence of this does not exclude this possibility. She has abnormal gait with left-sided Babinski. These two abnormalities together, with benign MRI cervical spine, suggest the possibility of an atypical parkinsonian syndrome emerging. However, this data is still nonspecific. I cannot exclude that for millimeter right sided lesion, although it is quite small, relates in part to the left-sided Babinski sign and to at least part of the gait abnormality. In this context, secondary stroke prophylaxis with antiplatelet and high intensity statin is the prudent course. I discussed this with her and she will start over the counter enteric-coated aspirin 81 mg daily. She has an upcoming appointment with her PCP in February. I continue to defer to primary care for continued optimal monitoring of risk factors for white matter disease and stroke: Hypertension, diabetes, sleep apnea, hypercholesterolemia. In the same vein, I have advised her not to use sumatriptan. Headaches have been okay. She is aware that there are alternatives that would be covered by her insurance if she is having occasional headaches and she should contact us (CGRP inhibitor should be covered given evidence of ischemia with ischemic change in the last 5 years on her updated brain MRI) 07/25/2021: Postconcussive headaches have improved and she has not had a breakthrough migraine for at least 6 months. We discussed that we will defer to PCP for ongoing management. She is off of propranolol which we had started for migraine prevention but was discontinued due to asthma flareup and is now on amlodipine for hypertension. PLAN Taty May January 31, 2022 FOR THE ABNORMAL NEUROLOGIC EXAM FINDINGS Your updated MRI of the brain shows a small abnormality that is new since 2017 that suggests ischemia. -I recommend that you start taking enteric-coated aspirin, 81 mg daily which you can find [id number] at the pharmacy until you are able to further discuss with PCP. I recommend indefinite treatment with antiplatelet therapy -I recommend high intensity statin. Please discuss this with your PCP -We will also defer to your PCP to continue to optimize your blood pressure and glycemic control -Please do not take the sumatriptan that you have prescribed from your PCP. VITAMIN D DEFICIENCY -As we discussed briefly today, you will be following up with your PCP regarding vitamin D deficiency and any repeat testing FOR POSTCONCUSSIVE MIGRAINE TREATMENT: You were referred to physical therapy for high-level balance and gait training (will finding from the area of ischemia that we saw other than from the post concussive syndrome). You reported benefit from this and have completed your course, please continue with your [facility] exercise program [facility] [address] [place] [address], [place] [address] Ph. , Please also continue Physical therapy home exercises that you have learned for headaches as follows to serve as an additional headache preventative involving muscles involved include left-sided suboccipital muscles, sternocleidomastoid and temporalis. I am not recommending a new preventative medication as you have not had a migraine for at least 6 months. FOR BREAKTHROUGH MIGRAINE -Please discontinue sumatriptan in as discussed above as it is contraindicated in the setting of prior ischemia. If you have headaches, please contact us and we can give you a trial of a CGRP inhibitor which should now be covered by your insurance in the setting of the MRI finding discussed today We discussed follow-up options. We are not currently prescribing you any medication but would like to check in with you to see how things are going. You chose a 6-month follow-up. Please do not hesitate to contact us sooner for any new neurologic issues or if you begin having headaches again Discussed with Dr. Spears, impression and plan developed with him. I have reviewed chart note, discussed the situation with Corinne Harrison neurology YESY, and agree with note contents and with assessment/plan in particular. Eric Spears MD, PhD [facility] [email or web address] Not available 02/05/2022 14:28:08 Plan of Treatment Reminders Order Date Submit Date Provider Last Modified By Organization Details Last Modified Time Details Appointments None recorded. Lab zinc, serum or plasma - E83.2 2021 [place] [facility], [address] [place] [address] , [place], [address], 2 17:30:01 copper, serum or plasma - E83.00 2021 022 SHEILA Not available 08:52:51 vitamin D, 25-hydroxy, total, serum - E55.9 2021 022 [email or web address] 1 Not available 14:36:00 vitamin B12, serum - D51.9 2021 022 SHEILA Not available 15:33:50 vitamin E, serum - E56.0 2021 022 SHEILA Not available 2 09:25:01 Referral neurologic physical therapist referral - High level balance and gait 2021 022 [email or web address] 1 [facility], [address] [place], [address], 10:36:44 Procedures None recorded. Surgeries None recorded. Imaging MRI, brain, w/o contrast - Abnormal reflex exam (L toe extensor & b/l hoffmans) abnormal gait, no cord compression on C-spine MR, please eval for chronic infarct or brain lesion, thank you 2021 022 [facility] ([facility]), [address] [place], [address], 09:02:33 MRI, cervical spine, w/o contrast - abnormal gait w/ b/l Graff's & L Babinski 2021 022 [facility] ([facility]), [address] [place], [address], 09:48:39 Medication Orders Vitamin D2 1,250 mcg (50,000 unit) capsule 2021 022 [email or web address] 1 [id number], [address], [place], [address], 11:22:19 Patient TargetsNo targets recorded. Patient Instructions Encounter Date Encounter Id Patient Instructions Last Modified By Organization Details Last Modified Time 07/25/2021 [id number] PREVIOUS NEUROLO GY MEDICATION Propranolol ER 80 mg daily discontinued February 2021 due to asthma flareup Propranolol IR 60 mg twice a day: Tiredness, lightheadedness, dizzinessand one episode of syncope: June 2017 PREVIOUS DISCUSSIONS July 25, 2020: Propranolol ER 80 mg daily continues to help almost ideally. We will remember that side effects from propranolol emerged in either 50 mg twice a day or 60 mg twice a day previously. We will hold off on such higher doses in the future. We have discussed taper. I note that headaches seem better than even before concussion. Therefore propranolol is helping with pre-concussion migraine. Still, 60 mg ER dose might do as well. Yet she has no side effects. She prefers to stay where she has. To review our choice of propranolol: We discussed Topamax, propranolol, verapamil. She has had kidney stones around the time of the of her child in the late . She does not know what type (calcium phosphate stones recurrence have to percent risk with Topamax). She has mild asthma especially in cold weather. Nevertheless, we decided on propranolol and she will watch her asthma. Not available 07/25/2021 21:52:25 08/22/2021 [id number] PREVIOUS NEUROLO GY MEDICATION Propranolol ER 80 mg daily discontinued February 2021 due to asthma flareup Propranolol IR 60 mg twice a day: Tiredness, lightheadedness, dizzinessand one episode of syncope: June 2017 PREVIOUS DISCUSSIONS July 25 2021: She was on propranolol ER 80 mg daily at time of July and visit but she was taken off of this due to asthma flareup in mid February 2021. Due to hypertension, she was placed on amlodipine by her PCP. She has not had a migraine for more than 6 months, predating the change which is the last time she used sumatriptan which is prescribed by her PCP. We discussed that amlodipine is a calcium channel noble and while we would normally choose verapamil from a headache standpoint, it may be contributing to the improved headaches or she may now be back to her preconcussion headache baseline which was less frequent. In any event, we agreed not to make any medication changes for her migraines and to defer to PCP for ongoing amlodipine for her hypertension and sumatriptan for breakthrough migraine with plan to follow-up as needed. However, her neurologic examination is notable for slightly wide-based stance, decreased balance with tandem gait, brisk deep tendon reflexes with a positive Arabella's response on the left and equivocal plantar reflexes on the left, mute on the right so we discussed obtaining labs such as B12, copper and vitamin D for now with follow-up in 1 month and possibly obtaining an MRI of the cervical spine to rule out cervical myelopathy if no other explanation. She does report that she has had the low back and sacrum evaluated by imaging in the past and does have degenerative arthritis. 2021 medication review Amlodipine 5mg daily Sertraline 100 mg daily Montelukast 10 mg daily Wixela 1 puff Spiriva 1.25mcg Albuturol inhaler prn Albuturol nebulizer prn Sumatriptan 100mg prn Clonidine 0.1prn July 25, 2020: Propranolol ER 80 mg daily continues to help almost ideally. We will remember that side effects from propranolol emerged in either 50 mg twice a day or 60 mg twice a day previously. We will hold off on such higher doses in the future. We have discussed taper. I note that headaches seem better than even before concussion. Therefore propranolol is helping with pre-concussion migraine. Still, 60 mg ER dose might do as well. Yet she has no side effects. She prefers to stay where she has. To review our choice of propranolol: We discussed Topamax, propranolol, verapamil. She has had kidney stones around the time of the of her child in the late . She does not know what type (calcium phosphate stones recurrence have to percent risk with Topamax). She has mild asthma especially in cold weather. Nevertheless, we decided on propranolol and she will watch her asthma. Not available 09/06/2021 19:12:12 09/19/2021 [id number] PREVIOUS NEUROLO GY MEDICATION Propranolol ER 80 mg daily discontinued February 2021 due to asthma flareup Propranolol IR 60 mg twice a day: Tiredness, lightheadedness, dizzinessand one episode of syncope: June 2017 PREVIOUS DISCUSSIONS July 25 2021: She was on propranolol ER 80 mg daily at time of July and visit but she was taken off of this due to asthma flareup in mid February 2021. Due to hypertension, she was placed on amlodipine by her PCP. She has not had a migraine for more than 6 months, predating the change which is the last time she used sumatriptan which is prescribed by her PCP. We discussed that amlodipine is a calcium channel noble and while we would normally choose verapamil from a headache standpoint, it may be contributing to the improved headaches or she may now be back to her preconcussion headache baseline which was less frequent. In any event, we agreed not to make any medication changes for her migraines and to defer to PCP for ongoing amlodipine for her hypertension and sumatriptan for breakthrough migraine with plan to follow-up as needed. However, her neurologic examination is notable for slightly wide-based stance, decreased balance with tandem gait, brisk deep tendon reflexes with a positive Arabella's response on the left and equivocal plantar reflexes on the left, mute on the right so we discussed obtaining labs such as B12, copper and vitamin D for now with follow-up in 1 month and possibly obtaining an MRI of the cervical spine to rule out cervical myelopathy if no other explanation. She does report that she has had the low back and sacrum evaluated by imaging in the past and does have degenerative arthritis. 2021 medication review Amlodipine 5mg daily Sertraline 100 mg daily Montelukast 10 mg daily Wixela 1 puff Spiriva 1.25mcg Albuturol inhaler prn Albuturol nebulizer prn Sumatriptan 100mg prn Clonidine 0.1prn July 25, 2020: Propranolol ER 80 mg daily continues to help almost ideally. We will remember that side effects from propranolol emerged in either 50 mg twice a day or 60 mg twice a day previously. We will hold off on such higher doses in the future. We have discussed taper. I note that headaches seem better than even before concussion. Therefore propranolol is helping with pre-concussion migraine. Still, 60 mg ER dose might do as well. Yet she has no side effects. She prefers to stay where she has. To review our choice of propranolol: We discussed Topamax, propranolol, verapamil. She has had kidney stones around the time of the of her child in the late . She does not know what type (calcium phosphate stones recurrence have to percent risk with Topamax). She has mild asthma especially in cold weather. Nevertheless, we decided on propranolol and she will watch her asthma. Not available 09/19/2021 10:19:17 10/25/2021 [id number] PREVIOUS NEUROLO GY MEDICATION Propranolol ER 80 mg daily discontinued February 2021 due to asthma flareup Propranolol IR 60 mg twice a day: Tiredness, lightheadedness, dizzinessand one episode of syncope: June 2017 PREVIOUS DISCUSSIONS Sep 19 2021. We discussed that the neck step will be to obtain a a cervical spine to rule out cervical myelopathy. After that, if a myelopathy is shown, we would refer her to a neurosurgeon. We also discussed that this may take some time as it is not an emergency because she does not have weakness or bowel or bladder problems but she is beginning to have gait difficulty and it is meant to prevent any worsening. If there is a myelopathic signal on the cervical spine, we would defer to the neurosurgeons whether this would warrant surgery or surveillance. -Vitamin D deficiency with prescribed weekly supplement that was taken daily for 8 days: We had previously discussed on the telephone that the maximal vitamin D after oral supplementation is 1 month and symptomatic vitamin D but may be up to 2 months. Her vitamin D level 18 up from 6. While it is still low, there is a chance that she could have increase over the next month. I asked her to continue to hold daily vitamin D3 resume [id number] vitamin D3 weeks which will be 2 months after the weekly supplementation of vitamin D2. We will then defer to PCP, she has a follow-up in November. -Headache. She has now had a sinus headache which is her first headache since coming off of the propranolol. She has managed with [id number] medication. She does not wish to resume any preventative for the time being. -Zinc level, which was ordered previously, is still pending. August 22 2021: Copper is slightly elevated which would not explain a myelopathy (low would be expected) but may indicate a zinc deficiency which can cause mental status changes. We will obtain a zinc level and plan supplementation if low. -Vitamin D is low which would not directly explain a myelopathy but was obtained as part of the screening and can contribute to bone pain muscle weakness. We will start with supplementation of vitamin D2 and counseled her on D3 supplementation but will defer to her PCP for any further management. -We will have her follow-up in the office to repeat the gait and reflex examination in particular and if persistently abnormal will move forward with obtaining MRI of the C-spine to rule out myelopathy. -No changes to Migraine management: We reviewed that concussive symptoms seem to have resolved off of daily preventative medication and that she rarely requires sumatriptan which is managed by her PCP -she may follow-up with us as needed for this issue. July 25 2021: She was on propranolol ER 80 mg daily at time of July visit but she was taken off of this due to asthma flareup in mid February 2021. Due to hypertension, she was placed on amlodipine by her PCP. She has not had a migraine for more than 6 months, predating the change which is the last time she used sumatriptan which is prescribed by her PCP. We discussed that amlodipine is a calcium channel noble and while we would normally choose verapamil from a headache standpoint, it may be contributing to the improved headaches or she may now be back to her preconcussion headache baseline which was less frequent. In any event, we agreed not to make any medication changes for her migraines and to defer to PCP for ongoing amlodipine for her hypertension and sumatriptan for breakthrough migraine with plan to follow-up as needed. However, her neurologic examination is notable for slightly wide-based stance, decreased balance with tandem gait, brisk deep tendon reflexes with a positive Arabella's response on the left and equivocal plantar reflexes on the left, mute on the right so we discussed obtaining labs such as B12, copper and vitamin D for now with follow-up in 1 month and possibly obtaining an MRI of the cervical spine to rule out cervical myelopathy if no other explanation. She does report that she has had the low back and sacrum evaluated by imaging in the past and does have degenerative arthritis. 2021 medication review Amlodipine 5mg daily Sertraline 100 mg daily Montelukast 10 mg daily Wixela 1 puff Spiriva 1.25mcg Albuturol inhaler prn Albuturol nebulizer prn Sumatriptan 100mg prn Clonidine 0.1prn July 25, 2020: Propranolol ER 80 mg daily continues to help almost ideally. We will remember that side effects from propranolol emerged in either 50 mg twice a day or 60 mg twice a day previously. We will hold off on such higher doses in the future. We have discussed taper. I note that headaches seem better than even before concussion. Therefore propranolol is helping with pre-concussion migraine. Still, 60 mg ER dose might do as well. Yet she has no side effects. She prefers to stay where she has. To review our choice of propranolol: We discussed Topamax, propranolol, verapamil. She has had kidney stones around the time of the of her child in the late . She does not know what type (calcium phosphate stones recurrence have to percent risk with Topamax). She has mild asthma especially in cold weather. Nevertheless, we decided on propranolol and she will watch her asthma. Not available 10/25/2021 20:15:35 01/31/2022 [id number] PREVIOUS NEUROLO GY MEDICATION Sumatriptan from PCP: October 25, 2021, I asked her to hold it until we had results of brain MRI. January 31, 2022: Asked her to stop sumatriptan altogether in the setting of ischemic lesion Propranolol ER 80 mg daily discontinued February 2021 due to asthma flareup Propranolol IR 60 mg twice a day: Tiredness, lightheadedness, dizzinessand one episode of syncope: June 2017 PREVIOUS DISCUSSIONS October 25, 2021: No clear explanation of her abnormal exam findings. She denies a history of significant alcohol use to explain abnormal examination. We discussed referral to physical therapy for high-level balance and gait training. We will also obtain a brain MRI to assess for any underlying ischemia. Of note, she has had a previous MRI of the brain in 2017 that showed nonspecific supratentorial white matter changes likely due to small vessel cerebrovascular changes. It is possible, she could be developing a vascular parkinsonism. Sep 19 2021. We discussed that the neck step will be to obtain a a cervical spine to rule out cervical myelopathy. After that, if a myelopathy is shown, we would refer her to a neurosurgeon. We also discussed that this may take some time as it is not an emergency because she does not have weakness or bowel or bladder problems but she is beginning to have gait difficulty and it is meant to prevent any worsening. If there is a myelopathic signal on the cervical spine, we would defer to the neurosurgeons whether this would warrant surgery or surveillance. -Vitamin D deficiency with prescribed weekly supplement that was taken daily for 8 days: We had previously discussed on the telephone that the maximal vitamin D after oral supplementation is 1 month and symptomatic vitamin D but may be up to 2 months. Her vitamin D level 18 up from 6. While it is still low, there is a chance that she could have increase over the next month. I asked her to continue to hold daily vitamin D3 resume [id number] vitamin D3 weeks which will be 2 months after the weekly supplementation of vitamin D2. We will then defer to PCP, she has a follow-up in November. -Headache. She has now had a sinus headache which is her first headache since coming off of the propranolol. She has managed with [id number] medication. She does not wish to resume any preventative for the time being. -Zinc level, which was ordered previously, is still pending. August 22 2021: Copper is slightly elevated which would not explain a myelopathy (low would be expected) but may indicate a zinc deficiency which can cause mental status changes. We will obtain a zinc level and plan supplementation if low. -Vitamin D is low which would not directly explain a myelopathy but was obtained as part of the screening and can contribute to bone pain muscle weakness. We will start with supplementation of vitamin D2 and counseled her on D3 supplementation but will defer to her PCP for any further management. -We will have her follow-up in the office to repeat the gait and reflex examination in particular and if persistently abnormal will move forward with obtaining MRI of the C-spine to rule out myelopathy. -No changes to Migraine management: We reviewed that concussive symptoms seem to have resolved off of daily preventative medication and that she rarely requires sumatriptan which is managed by her PCP -she may follow-up with us as needed for this issue. July 25 2021: She was on propranolol ER 80 mg daily at time of July and visit but she was taken off of this due to asthma flareup in mid February 2021. Due to hypertension, she was placed on amlodipine by her PCP. She has not had a migraine for more than 6 months, predating the change which is the last time she used sumatriptan which is prescribed by her PCP. We discussed that amlodipine is a calcium channel noble and while we would normally choose verapamil from a headache standpoint, it may be contributing to the improved headaches or she may now be back to her preconcussion headache baseline which was less frequent. In any event, we agreed not to make any medication changes for her migraines and to defer to PCP for ongoing amlodipine for her hypertension and sumatriptan for breakthrough migraine with plan to follow-up as needed. However, her neurologic examination is notable for slightly wide-based stance, decreased balance with tandem gait, brisk deep tendon reflexes with a positive Arabella's response on the left and equivocal plantar reflexes on the left, mute on the right so we discussed obtaining labs such as B12, copper and vitamin D for now with follow-up in 1 month and possibly obtaining an MRI of the cervical spine to rule out cervical myelopathy if no other explanation. She does report that she has had the low back and sacrum evaluated by imaging in the past and does have degenerative arthritis. 2021 medication review Amlodipine 5mg daily Sertraline 100 mg daily Montelukast 10 mg daily Wixela 1 puff Spiriva 1.25mcg Albuturol inhaler prn Albuturol nebulizer prn Sumatriptan 100mg prn Clonidine 0.1prn July 25, 2020: Propranolol ER 80 mg daily continues to help almost ideally. We will remember that side effects from propranolol emerged in either 50 mg twice a day or 60 mg twice a day previously. We will hold off on such higher doses in the future. We have discussed taper. I note that headaches seem better than even before concussion. Therefore propranolol is helping with pre-concussion migraine. Still, 60 mg ER dose might do as well. Yet she has no side effects. She prefers to stay where she has. To review our choice of propranolol: We discussed Topamax, propranolol, verapamil. She has had kidney stones around the time of the of her child in the late . She does not know what type (calcium phosphate stones recurrence have to percent risk with Topamax). She has mild asthma especially in cold weather. Nevertheless, we decided on propranolol and she will watch her asthma. BILLING May 02, 2022: Discussion across issues of diagnoses and management and same day associated chart review and management greater than 50% greater than 40 minutes discussion star Not available 01/31/2022 19:06:17 Reason for Referral High level balance and gait Referring Physician: Corinne Harrison, Neurology, Encounter Date: 10/25/2021 Results Created Date Observation Date Name Description Value Unit Range Abnormal Flag Note LastModifiedBy Organization Detail LastModifiedTime 10/26/19 22 09/30/2021 MRI, cervi pepe spine , w/o contr ast No observ ation record ed. [email or web address] [facility] ([facility]) [address], [place], [address], 10/25/2021 13:04:18 12/05/19 22 12/02/2021 MRI, brain , w/o contr ast No observ ation record ed. [email or web address] [facility] ([facility]) [address] [place], [address], 12/31/2021 17:47:10 Result Notes None recorded. Procedures Surgical History Date Name Laterality Status Provider Name and Address Organization Details Recorded Time 01/31/2022 DATA REVIEW completed CORINNE HARRISON PA-C [address] [place] [address], [place], [phone], [facility] 01/31/2022 18:27:10 10/25/2021 DATA REVIEW completed CORINNE HARRISON PA-C [address] [place] [address], [place], [phone], [facility] 10/25/2021 20:05:44 09/19/2021 DATA REVIEW completed CORINNE HARRISON PA-C [address] [place] [address], [place]ON[place] Friend, [phone], [facility] 09/19/2021 20:06:18 08/22/2021 DATA REVIEW completed CORINNE HARRISON PA-C [address] [place] [address], [place]ON[place] Friend, [phone], [facility] 08/22/2021 10:59:15 07/25/2021 DATA REVIEW completed CORINNE HARRISON PA-C [address] [place] [address], [place]ON[place] Friend, [phone], [facility] 07/25/2021 21:28:07 Imaging Results None recorded. Procedure Notes None recorded. Medical Equipment None Reported. Allergies Allergen ID Allergen Name Allergen Category Reaction Reaction Severity Criticality Documentation Date Start Date Code Code System Note Provider Name and Address Organization Details Recorded Time 1310 Product containin g penicilli n (product) medicatio n Not available Not available Not available 08/01/2021 06205 8001 [facility] Medications Name Sig Start Date Stop Date Status Note LastModified by Organization Details LastModified Time prednisone 10 mg tablet TAKE 4 TABLETS BY MOUTH DAILY FOR 5 DAYS. active Not Available Not Available Not Available azithromycin 250 mg tablet TAKE 2 TABLETS BY MOUTH TODAY, THEN TAKE 1 TABLET DAILY FOR 4 DAYS active Not Available Not Available No t Available sumatriptan 100 mg tablet TAKE 1 TABLET BY MOUTH EVERY DAY NEEDED active Not Available Not Available No t Available propranolol ER 60 mg capsule,24 hr,extended release TAKE 1 CAPSULE BY MOUTH EVERY DAY active Not Available Not Available No t Available sertraline 100 mg tablet TAKE 1 TABLET BY MOUTH EVERY DAY IN THE MORNING active Not Available Not Available No t Available methylpredni solone 4 mg tablet TAKE 6 TABLETS ON DAY 1 DIRECTED ON PACKAGE AND DECREASE BY 1 TAB EACH DAY FOR A TOTAL OF 6 DAYS active Not Available Not Available No t Available amlodipine 5 mg tablet TAKE 1 TABLET BY MOUTH EVERY DAY active Not Available Not Available No t Available ondansetron 8 mg disintegrati ng tablet TAKE 1 TABLET BY MOUTH EVERY 8 HOURS NEEDED FOR NAUSEA active Not Available Not Available No t Available propranolol ER 80 mg capsule,24 hr,extended release TAKE 1 CAPSULE BY MOUTH EVERY DAY active Not Available Not Available No t Available montelukast 10 mg tablet TAKE 1 TABLET BY MOUTH DAILY active Not Available Not Available Not Available ergocalcifer ol (vitamin D2) 1,250 mcg (50,000 unit) capsule ONE CAPSULE EVERY WEEK FOR 8 WEEKS active Not Available Not Available Not Available methylpredni solone 4 mg tablets in a dose pack TAKE 6 TABLETS ON DAY 1 DIRECTED ON PACKAGE AND DECREASE BY 1 TAB EACH DAY FOR A TOTAL OF 6 DAYS active Not Available Not Available No t Available albuterol sulfate HFA 90 mcg/actuatio n aerosol inhaler TAKE 2 PUFFS BY MOUTH EVERY 4 HOURS NEEDED active Not Available Not Available No t Available propranolol 20 mg tablet PLEASE SEE ATTACHED FOR DETAILED DIRECTIONS active Not Available Not Available N ot Available metformin ER 500 mg tablet,exten ded release 24 hr TAKE 1 TABLET BY MOUTH EVERY DAY WITH DINNER active Not Available Not Available No t Available Denta 5000 Plus 1.1 % cream USE DIRECTED ONCE DAILY active Not Available Not Available N ot Available metformin ER 750 mg tablet,exten ded release 24 hr TAKE 1 TABLET BY MOUTH DAILY WITH DINNER active Not Available Not Available Not Available Spiriva Respimat 1.25 mcg/actuatio n solution for inhalation INHALE 2 PUFFS DAILY active Not Available Not Available Not Available Wixela Inhub 500 mcg-50 mcg/dose powder for inhalation TAKE 1 PUFF BY MOUTH TWICE A DAY active Not Available Not Available Not Available Vitals None Recorded Social History None recorded. Functional Status None recorded. Mental Status None recorded. Family History Nothing Reported. Medical History No medical history recorded. Gynecological HistoryNo gynecological history recorded. 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 61726893 M50.[id number] [place]END [id number] 08/22/2021 09:52:50 09/10/2021 15:47:12 Migraine without aura 04704792 G43.009 Dystonia 44099400 G24.3 Facial spasm 12417539 G5 1.39 Concussion with no loss of consciousness 06689632 S06.0X0D 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 53770012 M50.03 Cervical d isc prolapse with myelopathy 451572061 M50.03 [id number] CORINNE HARRISON PA-C [address] [place] [address] 09/19/2021 09:48:57 09/26/2021 10:50:41 Migraine without aura 66894916 G43.009 Dystonia 66453438 G24.3 Facial spasm 50865079 G5 1.39 Concussion with no loss of consciousness 31098941 S06.0X0D 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 78615868 M50.03 Cervical d isc prolapse with myelopathy 225665999 M50.03 [id number] CORINNE HARRISON PA-C [address] [place] [address] 10/25/2021 09:08:47 11/05/2021 14:58:15 Migraine without aura 02816453 G43.009 Dystonia 19593409 G24.3 Facial spasm 47699727 G5 1.39 Concussion with no loss of consciousness 44174542 S06.0X0D Abnormal gait 48158375 R 26.81 [id number] CORINNE HARRISON PA-C [address] [place] [address] 01/31/2022 12:54:11 02/05/2022 14:58:59 Migraine without aura 34373553 G43.009 Dystonia 42946233 G24.3 Facial spasm 63141090 G5 1.39 Concussion with no loss of consciousness 98599683 S06.0X0D Abnormal gait 03917885 R 26.81 Health Concerns Section Related Observation LastModified by Organization Detai ls LastModified Time None Recorded Concern Status LastModified by Organization Details LastModified Time None Recorded Advance Directives Directive None Recorded Payers Insurance Date Sequence Insurance Name Policy Number Policy Soriano Covered Member ID Soriano Member ID Guarantor Name 02/05/2022 1 [facility] [id number] Taty Yatespelle [id number] Taty Yatespelle Notes Date Note Type Note Provider Name and Address Organization Details Recorded Time 07/25/2021 text/html Follow-up of sym ptoms following October 15, 2016 concussion with associated dizziness and headache. She is unaccompanied. Since her July 25, 2020 neurology follow-up encounter exactly 1 year ago, she reports that migraines have improved for the last 6 months or so. We reviewed her neurologic history together as it is my first time meeting her: She had a fall leading to concussion with worsening of pre-existing migraines which had improved on propranolol. However, she had worsening of allergies last fall and her clothing man thought that she should probably go off of propranolol due to her asthma. A few days later, her asthma became much worse while she was out at a play with her resulting in commissioned security officer arriving and taking her to the emergency department where she was taken off of the propranolol. Her blood pressure was quite high and so her PCP switched her to amlodipine. Despite the change, she has not had any worsening of migraines. She states that she does not recall having a migraine recently. She has sumatriptan 100 mg tablets available as needed for breakthrough migraine from her PCP. She has not required one for 6 months or maybe longer. The only other med change was one of the asthma medications from her clothing man. She has had Covid in May but headaches were not bad. As she has been recovering there has been some joint pain and some digestive issues. She no longer has any dizziness associated with her initial concussive symptoms back in 2016. She does have quite a few stressors both at work and at home. 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 She is sleep deprived as she drives her daughter to work for third shift and then has to pick her up in the morning by 9:30 AM. Dog care also contributes to the stressors. July 25, 2020 encounter is reviewed:Since August 02, 2019 neurology follow-up encounter, just under 1 year ago, she cannot remember her last migraine, perhaps there was 1 over the past year, she cannot be certain. She has had an isolated sinus headache about once a season. This goes away with treatment and there has been no multi-day events. She continues without lightheadedness or tiredness that had transiently emerged with propranolol titration. She remains with resolved memory problems at a baseline at which she arrived early 2018 context February 2017 postconcussive memory issues. She reports no new medical conditions and no changes in other medications. Her mood is good in the context of the coronavirus pandemic. She is taking it one day at a time..Presenting symptomatology is reviewed from February 20, 2017 initial neurology consultation: On October 15, 2016, she fell down the outside stairs at her home and hit the left side of her head. She did not lose consciousness. Her daughter helped her up. She had bumps and bruises including some pain in her right ankle and head pain. It was not enough to cause her to alter her daily activities. The next day at work, however, her right ankle swelled up considerably. She also had significant headache. Subsequent diagnostic investigation revealed severe twisted ankle with tendon damage; and concussion with significant headache with light and sound sensitivity, a little dizziness, nausea, problems remembering, problems stringing words together, reduced ability to sleep at night and tiredness during the day; worsening of mood swings that had been mostly helped previously by Zoloft since 2014.There has been subsequent improvement: Dizziness is gone. Nausea is gone except when it appears with headache. Headaches themselves have resolved from intense and daily to once to twice per week, medium to slight. Initially, headache worsened with concentration such as work activity. Headache currently is independent of workplace activity or home activity or time of day. Headaches since the concussion and had been focused at her left shinto and this hasn t changed. Previously she had of varying number of severe migraines involving the whole right or left side of her head, up to once or twice a month when she is stressed, much less than this without stress. The focus that her left shinto is different than her pre-concussion headaches. Her word fluency is about 80% better. Her memory is only about 50% better. She has returned to work and she can do her tasks, but she is more slow, much of the time because she keeps checking whether she has done something she is not certain. Her reduced ability to sleep is only slightly better. She blames part of this to a atmosphere at both work and home that is frenetic and not conducive to good sleep hygiene. CORINNE HARRISON PA-C [address] [place] [address] [place], [phone], [facility] 08/01/2021 11:27:42 08/22/2021 text/html Follow-up of abn ormal reflexes and gait on neurological examination 07/25/2021, context: Symptoms following October 15, 2016 concussion with associated dizziness and headache. She is seen via telemedicine today. She is unaccompanied. Since July 25, 2021 annual follow-up encounter, she has been to the laboratory for vitamin B12, vitamin E which were both in the normal range and copper which was slightly elevated and vitamin D level which was quite low. We reviewed that I had noted abnormal reflexes with positive Arabella's on the left and all extensor on the left with slightly decreased balance. She does not feel that she has had any significant gait changes in the interim. She remains headache free off of propranolol. July 25, 2021 neurology follow-up encounter reviewed:Since her July 25, 2020 neurology follow-up encounter exactly 1 year ago, she reports that migraines have improved for the last 6 months or so. We reviewed her neurologic history together as it is my first time meeting her: She had a fall leading to concussion with worsening of pre-existing migraines which had improved on propranolol. However, she had worsening of allergies last fall and her clothing man thought that she should probably go off of propranolol due to her asthma. A few days later, her asthma became much worse while she was out at a play with her resulting in commissioned security officer arriving and taking her to the emergency department where she was taken off of the propranolol. Her blood pressure was quite high and so her PCP switched her to amlodipine. Despite the change, she has not had any worsening of migraines. She states that she does not recall having a migraine recently. She has sumatriptan 100 mg tablets available as needed for breakthrough migraine from her PCP. She has not required one for 6 months or maybe longer.The only other med change was one of the asthma medications from her clothing man. She has had Covid in May but headaches were not bad. As she has been recovering there has been some joint pain and some digestive issues. She no longer has any dizziness associated with her initial concussive symptoms back in 2016. She does have quite a few stressors both at work and at home. 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 She is sleep deprived as she drives her daughter to work for third shift and then has to pick her up in the morning by 9:30 AM. Dog care also contributes to the stressors. July 25, 2020 encounter is reviewed:Since August 02, 2019 neurology follow-up encounter, just under 1 year ago, she cannot remember her last migraine, perhaps there was 1 over the past year, she cannot be certain. She has had an isolated sinus headache about once a season. This goes away with treatment and there has been no multi-day events. She continues without lightheadedness or tiredness that had transiently emerged with propranolol titration. She remains with resolved memory problems at a baseline at which she arrived early 2018 context February 2017 postconcussive memory issues. She reports no new medical conditions and no changes in other medications. Her mood is good in the context of the coronavirus pandemic. She is taking it one day at a time..Presenting symptomatology is reviewed from February 20, 2017 initial neurology consultation: On October 15, 2016, she fell down the outside stairs at her home and hit the left side of her head. She did not lose consciousness. Her daughter helped her up. She had bumps and bruises including some pain in her right ankle and head pain. It was not enough to cause her to alter her daily activities. The next day at work, however, her right ankle swelled up considerably. She also had significant headache. Subsequent diagnostic investigation revealed severe twisted ankle with tendon damage; and concussion with significant headache with light and sound sensitivity, a little dizziness, nausea, problems remembering, problems stringing words together, reduced ability to sleep at night and tiredness during the day; worsening of mood swings that had been mostly helped previously by Zoloft since 2014.There has been subsequent improvement: Dizziness is gone. Nausea is gone except when it appears with headache. Headaches themselves have resolved from intense and daily to once to twice per week, medium to slight. Initially, headache worsened with concentration such as work activity. Headache currently is independent of workplace activity or home activity or time of day. Headaches since the concussion and had been focused at her left shinto and this hasn t changed. Previously she had of varying number of severe migraines involving the whole right or left side of her head, up to once or twice a month when she is stressed, much less than this without stress. The focus that her left shinto is different than her pre-concussion headaches. Her word fluency is about 80% better. Her memory is only about 50% better. She has returned to work and she can do her tasks, but she is more slow, much of the time because she keeps checking whether she has done something she is not certain. Her reduced ability to sleep is only slightly better. She blames part of this to a atmosphere at both work and home that is frenetic and not conducive to good sleep hygiene. Eric Spears MD [address] [place] [address], [phone], [facility] 09/06/2021 21:29:15 09/19/2021 text/html Follow-up of abn ormal reflexes and gait on neurological examination 07/25/2021, context: Symptoms following October 15, 2016 concussion with associated dizziness and headache. She is seen in the office today. She is unaccompanied. Since August 22, 2021, she comes in person for evaluation of gait and reflex exam.She feels that her gait is unchanged and has not particularly noticed any loss of balance. No issues with bowel or bladder. We reviewed her recent vitamin D deficiency and misunderstanding with supplementation.She started vitamin D2 prescription and [id number] vitamin D3 supplementation. She misunderstood the directions on the vitamin D2 and took it daily instead of weekly. She has not had any symptoms of vitamin D toxicity. We repeated vitamin D level which is still low but increased from prior. Calcium, phosphorus and PTH are all normal.We briefly reviewed her headache history: She has had headache for the last couple of days that she attributes to sinuses of/allergies and was able to tack picker something [id number] which helped. August 22, 2021 reviewed:Since July 25, 2021 annual follow-up encounter, she has been to the laboratory for vitamin B12, vitamin E which were both in the normal range and copper which was slightly elevated and vitamin D level which was quite low. We reviewed that I had noted abnormal reflexes with positive Arabella's on the left and all extensor on the left with slightly decreased balance. She does not feel that she has had any significant gait changes in the interim. She remains headache free off of propranolol. July 25, 2021 neurology follow-up encounter reviewed:Since her July 25, 2020 neurology follow-up encounter exactly 1 year ago, she reports that migraines have improved for the last 6 months or so. We reviewed her neurologic history together as it is my first time meeting her: She had a fall leading to concussion with worsening of pre-existing migraines which had improved on propranolol. However, she had worsening of allergies last fall and her clothing man thought that she should probably go off of propranolol due to her asthma. A few days later, her asthma became much worse while she was out at a play with her resulting in commissioned security officer arriving and taking her to the emergency department where she was taken off of the propranolol. Her blood pressure was quite high and so her PCP switched her to amlodipine. Despite the change, she has not had any worsening of migraines. She states that she does not recall having a migraine recently. She has sumatriptan 100 mg tablets available as needed for breakthrough migraine from her PCP. She has not required one for 6 months or maybe longer.The only other med change was one of the asthma medications from her clothing man. She has had Covid in May but headaches were not bad. As she has been recovering there has been some joint pain and some digestive issues. She no longer has any dizziness associated with her initial concussive symptoms back in 2017. She does have quite a few stressors both at work and at home. 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 She is sleep deprived as she drives her daughter to work for third shift and then has to pick her up in the morning by 9:30 AM. Dog care also contributes to the stressors. July 25, 2020 encounter is reviewed:Since August 02, 2019 neurology follow-up encounter, just under 1 year ago, she cannot remember her last migraine, perhaps there was 1 over the past year, she cannot be certain. She has had an isolated sinus headache about once a season. This goes away with treatment and there has been no multi-day events. She continues without lightheadedness or tiredness that had transiently emerged with propranolol titration. She remains with resolved memory problems at a baseline at which she arrived early 2018 context February 2017 postconcussive memory issues. She reports no new medical conditions and no changes in other medications. Her mood is good in the context of the coronavirus pandemic. She is taking it one day at a time..Presenting symptomatology is reviewed from February 20, 2017 initial neurology consultation: On October 15, 2016, she fell down the outside stairs at her home and hit the left side of her head. She did not lose consciousness. Her daughter helped her up. She had bumps and bruises including some pain in her right ankle and head pain. It was not enough to cause her to alter her daily activities. The next day at work, however, her right ankle swelled up considerably. She also had significant headache. Subsequent diagnostic investigation revealed severe twisted ankle with tendon damage; and concussion with significant headache with light and sound sensitivity, a little dizziness, nausea, problems remembering, problems stringing words together, reduced ability to sleep at night and tiredness during the day; worsening of mood swings that had been mostly helped previously by Zoloft since 2014.There has been subsequent improvement: Dizziness is gone. Nausea is gone except when it appears with headache. Headaches themselves have resolved from intense and daily to once to twice per week, medium to slight. Initially, headache worsened with concentration such as work activity. Headache currently is independent of workplace activity or home activity or time of day. Headaches since the concussion and had been focused at her left shinto and this hasn t changed. Previously she had of varying number of severe migraines involving the whole right or left side of her head, up to once or twice a month when she is stressed, much less than this without stress. The focus that her left shinto is different than her pre-concussion headaches. Her word fluency is about 80% better. Her memory is only about 50% better. She has returned to work and she can do her tasks, but she is more slow, much of the time because she keeps checking whether she has done something she is not certain. Her reduced ability to sleep is only slightly better. She blames part of this to a atmosphere at both work and home that is frenetic and not conducive to good sleep hygiene. Eric Spears MD [address] [place] [address] [place], [phone], [facility] 09/24/2021 15:07:16 10/25/2021 text/html Follow-up of abn ormal reflexes and gait on neurological examination 07/25/2021, context: Symptoms following October 15, 2016 concussion with associated dizziness and headache. She is seen via telemedicine. She is unaccompanied. Since her Sep 19 2021 neurology follow-up, she has been to [facility] for MRI of the cervical spine which did not show any cord compression or myelopathy. There is mild spondylosis but nothing to explain her slight imbalance and abnormal reflex exam. We previously looked for metabolic etiology and did not find an explanation. Vitamin D deficiency was noted. We reviewed social history. She is not a daily drinker, she has alcohol occasionally, maybe monthly. No remote history of alcoholism. Her gait is unchanged and not particularly off balance.The postconcussive headaches she had previously are reasonably well controlled. She has not required sumatriptan which she is prescribed from her PCP. Sep 19 2021 neurology follow-up reviewed:Since August 22, 2021, she comes in person for evaluation of gait and reflex exam.She feels that her gait is unchanged and has not particularly noticed any loss of balance. No issues with bowel or bladder. We reviewed her recent vitamin D deficiency and misunderstanding with supplementation.She started vitamin D2 prescription and [id number] vitamin D3 supplementation. She misunderstood the directions on the vitamin D2 and took it daily instead of weekly. She has not had any symptoms of vitamin D toxicity. We repeated vitamin D level which is still low but increased from prior. Calcium, phosphorus and PTH are all normal.We briefly reviewed her headache history: She has had headache for the last couple of days that she attributes to sinuses of/allergies and was able to tack picker something [id number] which helped. August 22, 2021 reviewed:Since July 25, 2021 annual follow-up encounter, she has been to the laboratory for vitamin B12, vitamin E which were both in the normal range and copper which was slightly elevated and vitamin D level which was quite low. We reviewed that I had noted abnormal reflexes with positive Arabella's on the left and all extensor on the left with slightly decreased balance. She does not feel that she has had any significant gait changes in the interim. She remains headache free off of propranolol. July 25, 2021 neurology follow-up encounter reviewed:Since her July 25, 2020 neurology follow-up encounter exactly 1 year ago, she reports that migraines have improved for the last 6 months or so. We reviewed her neurologic history together as it is my first time meeting her: She had a fall leading to concussion with worsening of pre-existing migraines which had improved on propranolol. However, she had worsening of allergies last fall and her clothing man thought that she should probably go off of propranolol due to her asthma. A few days later, her asthma became much worse while she was out at a play with her resulting in commissioned security officer arriving and taking her to the emergency department where she was taken off of the propranolol. Her blood pressure was quite high and so her PCP switched her to amlodipine. Despite the change, she has not had any worsening of migraines. She states that she does not recall having a migraine recently. She has sumatriptan 100 mg tablets available as needed for breakthrough migraine from her PCP. She has not required one for 6 months or maybe longer.The only other med change was one of the asthma medications from her clothing man. She has had Covid in May but headaches were not bad. As she has been recovering there has been some joint pain and some digestive issues. She no longer has any dizziness associated with her initial concussive symptoms back in 2017. She does have quite a few stressors both at work and at home. 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 She is sleep deprived as she drives her daughter to work for third shift and then has to pick her up in the morning by 9:30 AM. Dog care also contributes to the stressors. Follow-up of abnormal reflexes and gait on neurological examination 07/25/2021, context: Symptoms following October 15, 2016 concussion with associated dizziness and headache. She is seen via telemedicine. She is unaccompanied. Since her Sep 19 2021 neurology follow-up, she has been to [facility] for MRI of the cervical spine which did not show any cord compression or myelopathy. There is mild spondylosis but nothing to explain her slight imbalance and abnormal reflex exam. We previously looked for metabolic etiology and did not find an explanation. Vitamin D deficiency was noted. We reviewed social history. She is not a daily drinker, she has alcohol occasionally, maybe monthly. No remote history of alcoholism. Her gait is unchanged and not particularly off balance. The postconcussive headaches she had previously are reasonably well controlled. She has not required sumatriptan which she is prescribed from her PCP. Sep 19 2021 neurology follow-up reviewed: July 25, 2020 encounter is reviewed:Since August 02, 2019 neurology follow-up encounter, just under 1 year ago, she cannot remember her last migraine, perhaps there was 1 over the past year, she cannot be certain. She has had an isolated sinus headache about once a season. This goes away with treatment and there has been no multi-day events. She continues without lightheadedness or tiredness that had transiently emerged with propranolol titration. She remains with resolved memory problems at a baseline at which she arrived early 2018 context February 2017 postconcussive memory issues. She reports no new medical conditions and no changes in other medications. Her mood is good in the context of the coronavirus pandemic. She is taking it one day at a time..Presenting symptomatology is reviewed from February 20, 2017 initial neurology consultation: On October 15, 2016, she fell down the outside stairs at her home and hit the left side of her head. She did not lose consciousness. Her daughter helped her up. She had bumps and bruises including some pain in her right ankle and head pain. It was not enough to cause her to alter her daily activities. The next day at work, however, her right ankle swelled up considerably. She also had significant headache. Subsequent diagnostic investigation revealed severe twisted ankle with tendon damage; and concussion with significant headache with light and sound sensitivity, a little dizziness, nausea, problems remembering, problems stringing words together, reduced ability to sleep at night and tiredness during the day; worsening of mood swings that had been mostly helped previously by Zoloft since 2014.There has been subsequent improvement: Dizziness is gone. Nausea is gone except when it appears with headache. Headaches themselves have resolved from intense and daily to once to twice per week, medium to slight. Initially, headache worsened with concentration such as work activity. Headache currently is independent of workplace activity or home activity or time of day. Headaches since the concussion and had been focused at her left shinto and this hasn t changed. Previously she had of varying number of severe migraines involving the whole right or left side of her head, up to once or twice a month when she is stressed, much less than this without stress. The focus that her left shinto is different than her pre-concussion headaches. Her word fluency is about 80% better. Her memory is only about 50% better. She has returned to work and she can do her tasks, but she is more slow, much of the time because she keeps checking whether she has done something she is not certain. Her reduced ability to sleep is only slightly better. She blames part of this to a atmosphere at both work and home that is frenetic and not conducive to good sleep hygiene. Eric Spears MD [address] [place] [address], [id number], [facility] Neurology [facility] 10/30/2021 18:07:23 01/31/2022 text/html Follow-up of abn ormal reflexes and gait on neurological examination 07/25/2021, context: Symptoms following October 15, 2016 concussion with associated dizziness and headache. She is seen via telemedicine. She is unaccompanied. Since October 25, 2021 neurology follow-up, she went for an MRI of brain on December 02, 2021. This showed a new 4 mm right miller radiata region of increased T2 signal, which is nonspecific, compared to 2017. We have had some communication challenges to get her in earlier and so she is here to follow-up on this today.In the interim, she has been going to physical therapy and she feels that her balance is improving. Her last appointment was on Friday. She has some home exercises for strengthening and balance and feels this is improving. Headaches have been okay.She is not on aspirin or an antiplatelet agent. She also does not take a statin.She was diagnosed with diabetes at some point in the spring and was started on metformin. She is on amlodipine for hypertension. She has a follow-up planned with her PCP in February. Previously pending: Zinc level which was normalJune 2021 neurology follow-up reviewedSince her Sep 19 2021 neurology follow-up, she has been to [facility] for MRI of the cervical spine which did not show any cord compression or myelopathy. There is mild spondylosis but nothing to explain her slight imbalance and abnormal reflex exam. We previously looked for metabolic etiology and did not find an explanation. Vitamin D deficiency was noted. We reviewed social history. She is not a daily drinker, she has alcohol occasionally, maybe monthly. No remote history of alcoholism. Her gait is unchanged and not particularly off balance.The postconcussive headaches she had previously are reasonably well controlled. She has not required sumatriptan which she is prescribed from her PCP. Sep 19 2021 neurology follow-up reviewed:Since August 22, 2021, she comes in person for evaluation of gait and reflex exam.She feels that her gait is unchanged and has not particularly noticed any loss of balance. No issues with bowel or bladder. We reviewed her recent vitamin D deficiency and misunderstanding with supplementation.She started vitamin D2 prescription and [id number] vitamin D3 supplementation. She misunderstood the directions on the vitamin D2 and took it daily instead of weekly. She has not had any symptoms of vitamin D toxicity. We repeated vitamin D level which is still low but increased from prior. Calcium, phosphorus and PTH are all normal.We briefly reviewed her headache history: She has had headache for the last couple of days that she attributes to sinuses of/allergies and was able to tack picker something [id number] which helped. August 22, 2021 reviewed:Since July 25, 2021 annual follow-up encounter, she has been to the laboratory for vitamin B12, vitamin E which were both in the normal range and copper which was slightly elevated and vitamin D level which was quite low. We reviewed that I had noted abnormal reflexes with positive Arabella's on the left and all extensor on the left with slightly decreased balance. She does not feel that she has had any significant gait changes in the interim. She remains headache free off of propranolol. July 25, 2021 neurology follow-up encounter reviewed:Since her July 25, 2020 neurology follow-up encounter exactly 1 year ago, she reports that migraines have improved for the last 6 months or so. We reviewed her neurologic history together as it is my first time meeting her: She had a fall leading to concussion with worsening of pre-existing migraines which had improved on propranolol. However, she had worsening of allergies last fall and her clothing man thought that she should probably go off of propranolol due to her asthma. A few days later, her asthma became much worse while she was out at a play with her resulting in commissioned security officer arriving and taking her to the emergency department where she was taken off of the propranolol. Her blood pressure was quite high and so her PCP switched her to amlodipine. Despite the change, she has not had any worsening of migraines. She states that she does not recall having a migraine recently. She has sumatriptan 100 mg tablets available as needed for breakthrough migraine from her PCP. She has not required one for 6 months or maybe longer.The only other med change was one of the asthma medications from her clothing man. She has had Covid in May but headaches were not bad. As she has been recovering there has been some joint pain and some digestive issues. She no longer has any dizziness associated with her initial concussive symptoms back in 2016. She does have quite a few stressors both at work and at home. 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 She is sleep deprived as she drives her daughter to work for third shift and then has to pick her up in the morning by 9:30 AM. Dog care also contributes to the stressors. Follow-up of abnormal reflexes and gait on neurological examination 07/25/2021, context: Symptoms following October 15, 2016 concussion with associated dizziness and headache. She is seen via telemedicine. She is unaccompanied. Since her Sep 19 2021 neurology follow-up, she has been to [facility] for MRI of the cervical spine which did not show any cord compression or myelopathy. There is mild spondylosis but nothing to explain her slight imbalance and abnormal reflex exam. We previously looked for metabolic etiology and did not find an explanation. Vitamin D deficiency was noted. We reviewed social history. She is not a daily drinker, she has alcohol occasionally, maybe monthly. No remote history of alcoholism. Her gait is unchanged and not particularly off balance. The postconcussive headaches she had previously are reasonably well controlled. She has not required sumatriptan which she is prescribed from her PCP. Sep 19 2021 neurology follow-up reviewed: July 25, 2020 encounter is reviewed:Since August 02, 2019 neurology follow-up encounter, just under 1 year ago, she cannot remember her last migraine, perhaps there was 1 over the past year, she cannot be certain. She has had an isolated sinus headache about once a season. This goes away with treatment and there has been no multi-day events. She continues without lightheadedness or tiredness that had transiently emerged with propranolol titration. She remains with resolved memory problems at a baseline at which she arrived early 2018 context February 2017 postconcussive memory issues. She reports no new medical conditions and no changes in other medications. Her mood is good in the context of the coronavirus pandemic. She is taking it one day at a time..Presenting symptomatology is reviewed from February 20, 2017 initial neurology consultation: On October 15, 2016, she fell down the outside stairs at her home and hit the left side of her head. She did not lose consciousness. Her daughter helped her up. She had bumps and bruises including some pain in her right ankle and head pain. It was not enough to cause her to alter her daily activities. The next day at work, however, her right ankle swelled up considerably. She also had significant headache. Subsequent diagnostic investigation revealed severe twisted ankle with tendon damage; and concussion with significant headache with light and sound sensitivity, a little dizziness, nausea, problems remembering, problems stringing words together, reduced ability to sleep at night and tiredness during the day; worsening of mood swings that had been mostly helped previously by Zoloft since 2014.There has been subsequent improvement: Dizziness is gone. Nausea is gone except when it appears with headache. Headaches themselves have resolved from intense and daily to once to twice per week, medium to slight. Initially, headache worsened with concentration such as work activity. Headache currently is independent of workplace activity or home activity or time of day. Headaches since the concussion and had been focused at her left shinto and this hasn t changed. Previously she had of varying number of severe migraines involving the whole right or left side of her head, up to once or twice a month when she is stressed, much less than this without stress. The focus that her left shinto is different than her pre-concussion headaches. Her word fluency is about 80% better. Her memory is only about 50% better. She has returned to work and she can do her tasks, but she is more slow, much of the time because she keeps checking whether she has done something she is not certain. Her reduced ability to sleep is only slightly better. She blames part of this to a atmosphere at both work and home that is frenetic and not conducive to good sleep hygiene. Eric Spears MD [address] [place] [address] [place], [id number], [facility] Neurology [facility] 02/05/2022 14:28:18 OBGyn Episode No OBEpisode recorded.
== END 2024-11-15 10:22 | disposition home or self-care (01) ==
LOC: HO.US 10:21
PROVIDERS: PCP Family Medicine; Visit Provider Nurse Practitioner Family
DX: N20.0 Calculus of kidney (principal)
CPT/HCPCS: 76775

== ENCOUNTER → 2024-11-15 10:25 | Outpatient (BNV) | payer OTHER, SELFPAY | PROVIDERS: PCP Family Medicine; Visit Provider Radiology Diagnostic Radiology | DX: N20.0 Calculus of kidney (principal) | CPT/HCPCS: 76775 ==

== ENCOUNTER 2024-11-25 10:25 | Outpatient (AMB) | payer OTHER, SELFPAY ==
--- NOTE | 2024-11-25 10:30 | A.OFFVIS_ITS ---
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 Noriega. She has a past medical history of alcohol abuse with episodic drinking behavior, morbid obesity, hyperlipidemia, hypertension, type 2 diabetes, and nephrolithiasis. She presents to the office today for follow-up of her nephrolithiasis. In discussion with the patient today she reports since her last office visit here approximately 6 months ago she has seeked emergency room care at [place] at which time she was treated for urinary tract infection. She also reports having recently followed up with her PCP and was prescribed Estrace cream for preventative urinary tract infections. 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 In office urinalysis results reviewed with the patient today negative leukocytes and negative nitrates. When asked she is unsure as to what UTI like symptoms she typically experiences. Recent renal imaging results reviewed with the patient today. 12/03 bilateral kidneys are normal in size, echogenicity, and morphology per radiology report. No renal masses or hydronephrosis noted bilaterally. 4 mm nonobstructing calculus at the mid pole. When asked she does continue to report episodes of left-sided flank pain. We did discussed further workup to include KUB and or surveillance monitoring. She would like to continue with surveillance monitoring at this time. We did discussed the importance of adequate hydration relation to nephrolithiasis as well as overall health and well-being. PH today 6.0. She otherwise denies any bothersome urinary issues. She denies urinary urgency, urinary frequency, incontinence, nocturia, hematuria, dysuria, foul smelling urine, changes to urinary stream, fever, and or chills. She is happy with her current voiding parameters. She otherwise offers no other issues or concerns at this time. [facility] Medical History Alcohol abuse, episodic drinking behavior Chronic bilateral low back pain with bilateral sciatica Morbid obesity Mixed hyperlipidemia Essential hypertension Type 2 diabetes mellitus without complication Review of Systems Const All systems reviewed & are unremarkable except as noted in HPI and below Physical Exam Const General: cooperative, comfortable, no acute distress, well developed, alert, awake and poor hygiene Nutritional Appearance: overweight Orientation/consciousness: patient oriented x3 Limitations: no limitations HEENT Head: Yes normal to inspection, Yes normocephalic and Yes atraumatic Ears: hearing grossly normal bilaterally Eyes General: appearance normal, both eyes and all related structures Neck Neck: Yes normal visual inspection and Yes trachea midline Chest Chest palpation & inspection: normal inspection of the chest Resp Effort & Inspection: normal respiratory effort and able to speak in complete sentences Cardio Rate: regular rate GI Inspection: Yes normal to inspection General: Yes no CVA tenderness Back/Spine/Pelvis Back: no CVA tenderness Skin General skin exam: no rashes or lesions noted Neuro General: patient oriented x3 Extrem General: Yes normal to inspection Psych Appearance: grossly normal Mental Status: mental status grossly normal Speech and movement: Normal speech and movement present and Clear speech present Affect: Sad affect present Attitude: cooperative Thought process: Normal thought process present Thought content: Normal thought content present Insight: Fair insight present (Psych) Judgement: Fair judgement present (Psych) Results AMB Urinalysis, Automated UA Leukoctes 0 Cyndy/uL Last Edit by YUMIKO Quintero on 11/25/24 10:47 UA Nitrite Last Edit by YUMIKO Quintero on 11/25/24 10:47 UA Urobilinogen 0.2 mg/dL Last Edit by YUMIKO Quintero on 11/25/24 10:4 7 UA Protein 0 mg/dL Last Edit by [facility] Nunez, [facility] on 11/25/24 10:47 UA pH 6.0 Last Edit by Arlene Nunez, [facility] on 11/25/24 10:47 UA Blood 0 Sascha/uL Last Edit by Arlene Nunez, [facility] on 11/25/24 10:47 UA Specific [place] 1.015 Last Edit by Arlene Nunez, [facility] on 11/25/24 10: 47 UA Ketone Last Edit by Arlene Nunez, [facility] on 11/25/24 10:47 UA Bilirubin 0 mg/dL Last Edit by Arlene Nunez, [facility] on 11/25/24 10:47 UA Glucose 0 mg/dL Last Edit by Arlene Nunez, [facility] on 11/25/24 10:47 Results Reviewed Results Reviewed: Laboratory Last Values Urine pH (Auto) 6.0 11/25/24 10:46 Specific [place] (Auto) 1.015 11/25/24 10:46 Urine Protein (Auto) 0 mg/dL 11/25/24 10:46 Glucose (UA)(Auto) 0 mg/dL 11/25/24 10:46 Urine Blood (Auto) 0 Sascha/uL 11/25/24 10:46 Urine Bilirubin (Auto) 0 mg/dL 11/25/24 10:46 Urine Urobilinogen (Auto) 0.2 mg/dL 11/25/24 10:46 Leukocyte Esterase (Auto) 0 Cyndy/uL 11/25/24 10:46 Date of Service: 11/15/24 Procedure(s): US renal BI Findings: Right kidney is normal in size, echogenicity and morphology, 12.7 cm in length. No calculus, mass or hydronephrosis. Left kidney is normal in size, echogenicity and morphology, 12.0 cm in length. No mass or hydronephrosis. 4 mm calculus at the midpole. Limited color Doppler demonstrates unremarkable bilateral blood flow. Impression: Nonobstructing left nephrolithiasis. Assessment & Plan Assessment & Plan (1) Nephrolithiasis: Code(s): N20.0 - Calculus of kidney Category: Medical (2) Flank pain: Code(s): R10.9 - Unspecified abdominal pain Category: Medical (3) Recurrent postcoital urinary tract infection: Code(s): N39.0 - Urinary tract infection, site not specified Category: Medical Plan In office urinalysis results reviewed with the patient today; as noted above. Recent renal imaging results reviewed with the patient today; as noted above. We did discussed potential causes of urinary tract infections as well as nephrolithiasis Will continue with surveillance monitoring at this time. We discussed the importance of adequate hydration relation to nephrolithiasis as well as urinary tract infections and overall health and well-being. Continue adding 1 oz of lemon juice to water daily. We also discussed vitamin B6. Will obtain KUB in 6 months. Follow-up in 6 months with KUB and PVR; or sooner with any issues, concerns, and or questions. Orders: Orders XR KUB Today N20.0 - Calculus of kidney, R10.9 - Unspecified abdominal pain AMB Urinalysis Automated Today Z13.9 - Encounter for screening, unspecified Patient Instructions: The patient had an opportunity to ask questions regarding the treatment plan. All questions were answered. Physical exam, labs, and imaging were discussed and reviewed in detail. As well as risks, benefits, and discussion of treatment choices. No major barriers to understanding were identified. The patient expressed understanding and agreement with the above treatment plan. The patient was made aware they should contact our office by phone for worsening of their current condition, the appearance of new symptoms, or with any questions or concerns. Compliance is encouraged with any medications and follow up testing that is ordered. It is a privilege to be allowed the opportunity to participate in? your urological care.? Again, if you have any questions or concerns If you have any questions or concerns please do not hesitate to contact me. The office is [phone]. This note is constructed using voice recognition software. While every effort has been made to ensure accuracy supervisory lifeguard errors may have been included. Yours sincerely, PAVAN Gibbons Coding Level of Care Code Est Pt Level 3 (08388) Complex EM visit Add On G2211 Diagnoses Nephrolithiasis N20.0 Flank pain R10.9 Recurrent postcoital urinary tract infection N39.0
--- OUTSIDE RECORDS SUMMARY | 2024-11-25 10:56 | XMS_ITS | Patient Health Record ---
[facility] Address [address] [place] [address] Care Team Providers Care Group Director Experience Name Role Phone Amarjit Noriegaurav Primary Care Provider Jessy Mei Unavailable [phone] Allergies Allergen (clinical drug ingredient) Drug/Non Drug Allergy documented on EMR Reaction Allergy Type Onset Date Status Penicillin Unknown Drug Allergy Active Results Component Value Reference Range Notes HEMOGLOBIN A1C (GLYCOHEMOGLO BIN) Reviewed date:11/08/2024 09:43:04 AM Interpretation: Performing Lab: Notes/Report: HEMOGLOBIN A1C % (HH) 7.5 Reason For Referral No Information Medications Medication SIG (Take, Route, Frequency, Duration) Notes Start Date End Date Status Sertraline HCl Activ e hydroCHLOROthiazide Active Montelukast Sodium A ctive Spiriva Respimat Act hseridan amLODIPine Benzoate Active Albuterol Active Wixela Inhub Active Trulicity 0.75 MG/0.5ML as directed Subcutaneous Active metFORMIN HCl Active Extra Depth Orthopedic Shoes (1 Pair) with Customized Heat Molded Multidensity Innersoles (3 Pair) as directed Dx: NIDDM/Polyneuropathy (E11.42), Hammertoe Foot Deformity (M20.41,M20.42), Preulcerative Skin Lesion(s) (L85.1 08/16/2024 Active Immunizations Vaccine Route Administration Date Status Comme nts Influenza Unknown 03/09/2024 Administered Social History Tobacco Use: Social History Observation Description Date Details (start date - stop date) Never Smoker NA - NA Tobacco use other than smoking: Question Answer Notes Are you an other tobacco user? No Tobacco Control (Standard) Question Answer Notes Tobacco use: Nonsmoker Additional Findings: Tobacco non-user Current no nsmoker AUDIT-C (Standard) Question Answer Notes Did you have a drink containing alcohol in the p ast year? No Points 0 Interpretation Negative Problems Problem Type SNOMED Code ICD Code Onset Dates Problem Status W/U Status Risk Notes Problem Acquired hammer toe of right foot ([id number] ) Other hammer toe(s) (acquired), right foot (M20.41) Active confirmed Problem Other hammer toe(s) (acquired), left foot (M20.42) Active confirmed Problem Plantar wart (70341678) Plantar wart (B07.0) Active confirmed Problem Polyneuropathy due to type 2 diabetes mellitus (337555962) Type 2 diabetes mellitus with diabetic polyneuropathy (E11.42) Active confirmed Vital Signs Blood pressure diastolic 70 mm Hg 11/08/2024 Height 5FT 4IN in 11/08/2024 Blood pressure systolic 130 mm Hg 11/08/2024 Weight 280 lbs 11/08/2024 BMI 48.06 kg/m2 11/08/2024 Encounters Encounter Location Date Provider Diagnosis [address] [address] 08/16/2024 Jessy Roman Type 2 diabetes mellitus with diabetic polyneuropathy E11.42 ; Other hammer toe(s) (acquired), right foot M20.41 ; Tinea unguium B35.1 ; Plantar wart B07.0 ; Left foot pain M79.672 and Other hammer toe(s) (acquired), left foot M20.[facility] [address] 11/08/2024 Jessy Roman Type 2 diabetes mellitus with diabetic polyneuropathy E11.42 ; Other hammer toe(s) (acquired), right foot M20.41 ; Tinea unguium B35.1 ; Plantar wart B07.0 ; Left foot pain M79.672 and Other hammer toe(s) (acquired), left foot M20.42 [facility] [address] [place] [address] 06/16/2024 Jessy Roman [facility] [address] [place] [address] 07/29/2024 Jessy Roman Assessments Encounter Date Diagnosis (ICD Code) Assessment Notes Treatment Notes Treatment Clinical Notes Section Notes 08/16/2024 Other hammer toe(s) (acquired), right foot (ICD-10 - M20.41) Patient Educated with: DIABETIC FOOT CARE INSTRUCTIONS. pdf (DIABETIC FOOT CARE INSTRUCTIONS. pdf) 08/16/2024 Type 2 diabetes mellitus with diabetic polyneuropathy (ICD-10 - E11.42) 11/08/2024 Other hammer toe(s) (acquired), right foot (ICD-10 - M20.41) 11/08/2024 Type 2 diabetes mellitus with diabetic polyneuropathy (ICD-10 - E11.42) 11/08/2024 Tinea unguium (ICD-10 - B35.1) 08/16/2024 Tinea unguium (ICD-10 - B35.1) 08/16/2024 Plantar wart (ICD-10 - B07.0) 11/08/2024 Plantar wart (ICD-10 - B07.0) 08/16/2024 Left foot pain (ICD-10 - M79.672) 11/08/2024 Left foot pain (ICD-10 - M79.672) 08/16/2024 Other hammer toe(s) (acquired), left foot (ICD-10 - M20.42) 11/08/2024 Other hammer toe(s) (acquired), left foot (ICD-10 - M20.42) Plan Of Treatment Next Appt Details Provider Name:Jessy dorman, 02/07/2025 09:30:00 AM, [address] [facility], [place], [address], Insurance Providers Payer Name Payer Address Payer Phone Subscriber Number Group Number Insured Name Patient Relationship to Insured Coverage Start Date Coverage End Date [facility] [address] [place] [address] [id number] Eddy Sanchez Self - patient is the insured Medical (General) History Medical History History ICD Code Anxiety Arthritis Back,Hip,and Knee pain Broken bones Cataracts covid-19 Depression Diabetic Diverticulosis Headaches/Migraines High Blood Pressure Stroke Measles Chicken pox Asthma Surgical History Surgery Date(Month/Year) kidney stones 02/01 cataract surgery appendectomy retinal detachment sx Hospitalization History Reason Date(Month/Year) UTI 10/03
--- OUTSIDE RECORDS SUMMARY | 2024-11-25 10:56 | XMS_ITS | Data Portability ---
Author Organization [facility] [employer] [employer] Address [address] [place] [address] [place] [address] Care Team Providers Care Study Coordinator Name Role Phone CESAR DOBBINS Primary Care [...] assessment/plan in particular. Eric Spears MD, PhD [facility] If laboratories are normal, we will [...] a zinc deficiency. -Please go to [facility] [address] [place] [address] [place] [address] Ph. , to check zinc level VITAMIN [...] with meals. 1000 unit capsules are available ysji-iws-vbiwyad in your pharmacy. Ask you're pharmacist to [...] assessment/plan in particular. Eric Spears MD, PhD [facility] mrossen Not available 09/06/2021 21:29:04 09/19/2021 [...] continue to hold daily vitamin D3 resume wikw-trh-hdrdrsi vitamin D3 weeks which will be 2 months after the weekly supplementation of vitamin D2. We will then defer to PCP, she has a follow-up in November. Headache. She has now had a sinus headache which is her first headache since coming off of the propranolol. She has managed with zgyo-lty-crneuyp medication. She does not wish to resume [...] MRI of the cervical spine without gadolinium [facility] ([facility]) [address] [place] [address] Ph. , I anticipate that they will [...] supplementation for 3 weeks and then resume nqxc-udo-wwayvsh daily vitamin D supplementation. I do not [...] assessment/plan in particular. Eric Spears MD, PhD [facility] mrossen Not available 09/24/2021 15:07:06 10/25/2021 [...] obtain MRI of the Brain without gadolinium [facility] ([facility]) [address] [place] [address] Ph. , I anticipate that they will [...] You can likely resume daily supplement of uete-yaz-iqzkwyn vitamin D3 as we discussed today but I defer to your PCP. FOR POSTCONCUSSIVE MIGRAINE TREATMENT: I am referring you to physical therapy for high-level balance and gait training. [address] [address] Ph. , Please call them for an [...] assessment/plan in particular. Eric Spears MD, PhD [facility] mrossen Not available 10/30/2021 18:07:13 01/31/2022 [...] 81 mg daily which you can find srxm-iqp-gxkstle at the pharmacy until you are able [...] please continue with your home exercise program [facility] [address] [place] [address], [place] [address] Ph. , Please also continue Physical therapy [...] assessment/plan in particular. Eric Spears MD, PhD [facility] mrossen Not available 02/05/2022 14:28:08 Plan of Treatment Reminders Order Date Submit Date Provider Last Modified By Organization Details Last Modified Time Details Appointments None recorded. Lab zinc, serum or plasma - E83.2 2021 [facility], [address] [place] [address] , [place], [address], 2 17:30:01 copper, serum or plasma - [...] balance and gait 2021 022 [email or web address], [address] [place], [address], 10:36:44 Procedures None recorded. Surgeries None recorded. Imaging MRI, brain, w/o contrast - Abnormal reflex exam (L toe extensor & b/l hoffmans) abnormal gait, no cord compression on C-spine MR, please eval for chronic infarct or brain lesion, thank you 2021 022 [facility] ([facility] [address] [place], [address], 09:02:33 MRI, cervical spine, w/o contrast - abnormal gait w/ b/l Graff's & L Babinski 2021 022 [facility] ([facility]), [address] [place], [address], 09:48:39 Medication Orders Vitamin D2 1,250 mcg (50,000 unit) capsule 2021 022 [email or web address] 1 [id number], [address] [facility], [place], [address], 11:22:19 Patient TargetsNo targets recorded. Patient Instructions [...] continue to hold daily vitamin D3 resume sdjo-cln-xqtykru vitamin D3 weeks which will be 2 months after the weekly supplementation of vitamin D2. We will then defer to PCP, she has a follow-up in November. -Headache. She has now had a sinus headache which is her first headache since coming off of the propranolol. She has managed with coas-snz-xmxjkii medication. She does not wish to resume [...] continue to hold daily vitamin D3 resume ejhw-rqq-fpzejjk vitamin D3 weeks which will be 2 months after the weekly supplementation of vitamin D2. We will then defer to PCP, she has a follow-up in November. -Headache. She has now had a sinus headache which is her first headache since coming off of the propranolol. She has managed with fmai-llt-lrmjsis medication. She does not wish to resume [...] ast No observ ation record ed. galbertViky [facility] [address], [place], [address], 10/25/2021 13:04:18 12/05/19 22 12/02/2021 MRI, brain , w/o contr ast No observ ation record ed. mrossen [facility] [address] [place], [address], 12/31/2021 17:47:10 Result Notes None recorded. Procedures Surgical History Date Name Laterality Status Provider Name and Address Organization Details Recorded Time 01/31/2022 DATA REVIEW completed CORINNE HARRISON PA-C [address] [place] [address], [place], [phone], [facility] 01/31/2022 18:27:10 10/25/2021 DATA REVIEW completed CORINNE HARRISON PA-C [address] [place] [address], [place] Friend, [phone], [facility] 10/25/2021 20:05:44 09/19/2021 DATA REVIEW completed CORINNE HARRISON PA-C [address] [place] [address], [place] Friend, [phone], [facility] 09/19/2021 20:06:18 08/22/2021 DATA REVIEW completed CORINNE HARRISON PA-C [address] [place] [address], [place] Friend, [phone], [facility] 08/22/2021 10:59:15 07/25/2021 DATA REVIEW completed CORINNE HARRISON PA-C [address] [place] [address], [place] Friend, [phone], [facility] 07/25/2021 21:28:07 Imaging Results None recorded. Procedure Notes None recorded. Medical Equipment None Reported. Allergies Allergen ID Allergen Name Allergen Category Reaction Reaction Severity Criticality Documentation Date Start Date Code Code System Note Provider Name and Address Organization Details Recorded Time 1310 Product containin g penicilli n (product) medicatio n Not available Not available Not available 08/01/2021 11715 8001 [facility] 13:35:41 Medications Name Sig Start Date [...] Code Diagnosis Note 4372 CORINNE HARRISON PA-C [facility] [address] [place] [address] [place] [address] 07/25/2021 08:32:27 08/01/2021 12:18:59 Migraine without aura 35105158 G43.009 Dystonia 10131769 G24.3 Facial spasm 80625415 G5 1.39 Concussion with no loss of consciousness 70776328 S06.0X0D 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 38161030 M50.[address] [place] [address] 08/22/2021 09:52:50 09/10/2021 15:47:12 Migraine without aura 77042232 G43.009 Dystonia 25052407 G24.3 Facial spasm 13424173 G5 1.39 Concussion with no loss of consciousness 25860166 S06.0X0D 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 54067348 M50.03 Cervical d isc prolapse with myelopathy 933258708 M50.03 5015 CORINNE HARRISON PA-C [address] [place] [address] 09/19/2021 09:48:57 09/26/2021 10:50:41 Migraine without aura 17703576 G43.009 Dystonia 35340902 G24.3 Facial spasm 72029872 G5 1.39 Concussion with no loss of consciousness 38359397 S06.0X0D 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 12735943 M50.03 Cervical d isc prolapse with myelopathy 374731188 M50.03 5500 CORINNE HARRISON PA-C [address] [place] [address] 10/25/2021 09:08:47 11/05/2021 14:58:15 Migraine without aura 60489336 G43.009 Dystonia 55973432 G24.3 Facial spasm 17959077 G5 1.39 Concussion with no loss of consciousness 01208430 S06.0X0D Abnormal gait 73045989 R 26.81 6535 CORINNE HARRISON PA-C [address] [place] [address] 01/31/2022 12:54:11 02/05/2022 14:58:59 Migraine without aura 76235302 G43.009 Dystonia 73031525 G24.3 Facial spasm 95074534 G5 1.39 Concussion with no loss of consciousness 81647366 S06.0X0D Abnormal gait 38556660 R 26.81 Health Concerns Section Related Observation LastModified by Organization Detai ls LastModified Time None Recorded Concern Status LastModified by Organization Details LastModified Time None Recorded Advance Directives Directive None Recorded Payers Insurance Date Sequence Insurance Name Policy Number Policy Soriano Covered Member ID Soriano Member ID Guarantor Name 02/05/2022 1 [facility] [id number] Taty Yatespelle [id number] Taty Yatespelle Notes Date Note Type Note [...] worsening of allergies last fall and her peoplesoft hr developer thought that she should probably go off of propranolol due to her asthma. A few days later, her asthma became much worse while she was out at a play with her resulting in balance bridge inspector arriving and taking her to the emergency [...] one of the asthma medications from her peoplesoft hr developer. She has had Covid in May but headaches were not bad. As she has been recovering there has been some joint pain and some digestive issues. She no longer has any dizziness associated with her initial concussive symptoms back in 2016. She does have quite a few stressors both at work and at home. 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 Previously she had of varying number of severe migraines involving the whole right or left side of her head, up to once or twice a month when she is stressed, much less than this without stress. The focus that her left lutheran is different than her pre-concussion headaches. Her [...] to good sleep hygiene. CORINNE HARRISON PA-C [address] [place] [address] [place], [phone], [facility] 08/01/2021 11:27:42 08/22/2021 text/html Follow-up of [...] worsening of allergies last fall and her peoplesoft hr developer thought that she should probably go off of propranolol due to her asthma. A few days later, her asthma became much worse while she was out at a play with her resulting in balance bridge inspector arriving and taking her to the emergency [...] one of the asthma medications from her peoplesoft hr developer. She has had Covid in May but headaches were not bad. As she has been recovering there has been some joint pain and some digestive issues. She no longer has any dizziness associated with her initial concussive symptoms back in 2016. She does have quite a few stressors both at work and at home. 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 Previously she had of varying number of severe migraines involving the whole right or left side of her head, up to once or twice a month when she is stressed, much less than this without stress. The focus that her left lutheran is different than her pre-concussion headaches. Her [...] to good sleep hygiene. Eric Spears MD [address] [place] [address], [phone], [facility] 09/06/2021 21:29:15 09/19/2021 text/html Follow-up of [...] with supplementation.She started vitamin D2 prescription and ohhz-iks-yqkagwn vitamin D3 supplementation. She misunderstood the directions [...] to sinuses of/allergies and was able to lemon picker something mxms-opz-oeneuiz which helped. August 22, 2021 reviewed:Since July [...] worsening of allergies last fall and her peoplesoft hr developer thought that she should probably go off of propranolol due to her asthma. A few days later, her asthma became much worse while she was out at a play with her resulting in balance bridge inspector arriving and taking her to the emergency [...] one of the asthma medications from her peoplesoft hr developer. She has had Covid in May but headaches were not bad. As she has been recovering there has been some joint pain and some digestive issues. She no longer has any dizziness associated with her initial concussive symptoms back in 2017. She does have quite a few stressors both at work and at home. 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 Previously she had of varying number of severe migraines involving the whole right or left side of her head, up to once or twice a month when she is stressed, much less than this without stress. The focus that her left lutheran is different than her pre-concussion headaches. Her [...] to good sleep hygiene. Eric Spears MD [address] [place] [address] [place], [phone], [facility] 09/24/2021 15:07:16 10/25/2021 text/html Follow-up of abn ormal reflexes and gait on neurological examination 07/25/2021, context: Symptoms following October 15, 2016 concussion with associated dizziness and headache. She is seen via telemedicine. She is unaccompanied. Since her Sep 19 2021 neurology follow-up, she has been to [facility] for MRI of the cervical spine which [...] with supplementation.She started vitamin D2 prescription and bkqn-scw-citjwoq vitamin D3 supplementation. She misunderstood the directions [...] to sinuses of/allergies and was able to lemon picker something hjso-tje-xdiseen which helped. August 22, 2021 reviewed:Since July [...] worsening of allergies last fall and her peoplesoft hr developer thought that she should probably go off of propranolol due to her asthma. A few days later, her asthma became much worse while she was out at a play with her resulting in balance bridge inspector arriving and taking her to the emergency [...] one of the asthma medications from her peoplesoft hr developer. She has had Covid in May but headaches were not bad. As she has been recovering there has been some joint pain and some digestive issues. She no longer has any dizziness associated with her initial concussive symptoms back in 2017. She does have quite a few stressors both at work and at home. 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 Previously she had of varying number of severe migraines involving the whole right or left side of her head, up to once or twice a month when she is stressed, much less than this without stress. The focus that her left lutheran is different than her pre-concussion headaches. Her [...] to good sleep hygiene. Eric Spears MD [address] [place] [address], [phone], [facility] 10/30/2021 18:07:23 01/31/2022 text/html Follow-up of [...] 2021 neurology follow-up, she has been to [facility] for MRI of the cervical spine which [...] with supplementation.She started vitamin D2 prescription and npzi-lfm-ahoykjf vitamin D3 supplementation. She misunderstood the directions [...] to sinuses of/allergies and was able to lemon picker something esfz-nac-utwqcqy which helped. August 22, 2021 reviewed:Since July [...] worsening of allergies last fall and her peoplesoft hr developer thought that she should probably go off of propranolol due to her asthma. A few days later, her asthma became much worse while she was out at a play with her resulting in balance bridge inspector arriving and taking her to the emergency [...] one of the asthma medications from her peoplesoft hr developer. She has had Covid in May but headaches were not bad. As she has been recovering there has been some joint pain and some digestive issues. She no longer has any dizziness associated with her initial concussive symptoms back in 2016. She does have quite a few stressors both at work and at home. 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 Previously she had of varying number of severe migraines involving the whole right or left side of her head, up to once or twice a month when she is stressed, much less than this without stress. The focus that her left lutheran is different than her pre-concussion headaches. Her [...] to good sleep hygiene. Eric Spears MD [address] [place] [address] [place], [phone], [facility] 02/05/2022 14:28:18 OBGyn Episode No OBEpisode recorded.
== END 2024-11-25 11:36 | disposition home or self-care (01) ==
LOC: HO.HUSH 10:25
PROVIDERS: PCP Family Medicine; Visit Provider Nurse Practitioner Family
DX: N20.0 Calculus of kidney (principal); R10.9 Unspecified abdominal pain; N39.0 Urinary tract infection, site not specified; Z13.9 Encounter for screening, unspecified
CPT/HCPCS: 99213; G2211

== ENCOUNTER → 2024-11-25 10:25 | Outpatient (BNVA) | payer OTHER, SELFPAY | PROVIDERS: PCP Family Medicine; Visit Provider Nurse Practitioner Family | DX: N20.0 Calculus of kidney (principal); N39.0 Urinary tract infection, site not specified; R10.9 Unspecified abdominal pain | CPT/HCPCS: 81003 ==

== ENCOUNTER 2024-12-23 10:32 | Outpatient (REF) | payer OTHER, SELFPAY ==
--- NOTE | ~2024-12-23 | XR_ITS ---
EXAMINATION: XR ABDOMEN KUB CLINICAL INDICATION: R10.9 - Unspecified abdominal pain COMPARISON: None available. TECHNIQUE: AP view of the abdomen. FINDINGS: Patient's large body habitus. No air-fluid levels. Gas throughout intestine. Stool within the rectum. Multilevel thoracolumbar spondylosis with S-shaped curvature. Degenerative changes in the symphysis pubis and inferior sacroiliac joints. XR/XR KUB IMPRESSION: No intestinal obstruction pattern. Electronically signed by: Franky Lucia MD 12/23/2024 10:59 AM EDT
--- OUTSIDE RECORDS SUMMARY | 2024-12-23 11:36 | XMS_ITS | Patient Health Record ---
[facility] Organization [facility] Address [address] [place] [address] Care Team Providers Care Health Teacher Name Role Phone Amarjit Noriegaurav Primary Care Provider Jessy Mei Unavailable [phone] Allergies Allergen (clinical drug ingredient) Drug/Non Drug [...] Montelukast Sodium A ctive Spiriva Respimat Act sheridan amLODIPine Benzoate Active Albuterol Active Wixela [employer]hub [...] Problem Acquired hammer toe of right foot (162003983670 9105) Other hammer toe(s) (acquired), right foot (M20.41) Active confirmed Problem Acquired hammer toe of left foot (013286819236 9103) Other hammer toe(s) (acquired), left foot (M20.42) Active confirmed Problem Plantar wart (60848583) Plantar wart (B07.0) Active confirmed Problem Type 2 diabetes mellitus with diabetic polyneuropathy (E11.42) Active confirmed Vital Signs Blood pressure diastolic 70 mm Hg 11/08/2024 Height 5FT 4IN in 11/08/2024 Blood pressure systolic 130 mm Hg 11/08/2024 Weight 280 lbs 11/08/2024 BMI 48.06 kg/m2 11/08/2024 Encounters Encounter Location Date Provider Diagnosis [address] [address] 08/16/2024 Jessy Roman Type 2 diabetes mellitus with diabetic polyneuropathy E11.42 ; Other hammer toe(s) (acquired), right foot M20.41 ; Tinea unguium B35.1 ; Plantar wart B07.0 ; Left foot pain M79.672 and Other hammer toe(s) (acquired), left foot M20.[facility] [address] 11/08/2024 Jessy Roman Type 2 diabetes mellitus with diabetic polyneuropathy E11.42 ; Other hammer toe(s) (acquired), right foot M20.41 ; Tinea unguium B35.1 ; Plantar wart B07.0 ; Left foot pain M79.672 and Other hammer toe(s) (acquired), left foot M20.42 [facility] [address] [place] [address] 06/16/2024 Jessy Roman [facility] [place] [address] [place] [address] 07/29/2024 Jessy Roman Assessments Encounter Date Diagnosis [...] Provider Name:Jessy dorman, 02/07/2025 09:30:00 AM, [address] [facility], [place], [address], Insurance Providers Payer Name Payer Address Payer Phone Subscriber Number Group Number Insured Name Patient Relationship to Insured Coverage Start Date Coverage End Date [facility] [address] [place] [address] [id number] Eddy Sanchez Self - patient is the insured Medical (General) History Medical History History ICD Code Anxiety Arthritis Back,Hip,and Knee pain Broken bones Cataracts covid-19 Depression Diabetic Diverticulosis Headaches/Migraines High Blood Pressure Stroke Measles Chicken pox Asthma Surgical History Surgery Date(Month/Year) kidney stones 02/01 cataract surgery appendectomy retinal detachment sx Hospitalization History Reason Date(Month/Year) UTI 10/03
--- OUTSIDE RECORDS SUMMARY | 2024-12-23 11:36 | XMS_ITS | Encounter Summary ---
Author Organization [facility] Address [address] [place] [address] [place] [phone] Phone Care Team Providers Care Mobile Unit Assistant Name Role Phone Xu Garner Dameon DO Unavailable Qi Resendiz DO Unavailable Alis Rouqe POLYSOMNOGRAPHER Unavailable Nahum Guzman MD Unavailable [phone] Kristofer Gray MD Unavailable [phone] Yasir Tejeda MD Unavailable Dalia Esparza MD Unavailable Roshan Noriega MD Primary Care Provider Roshan Noriega MD Primary Care Provider [phone] Aysha Burdick [facility] Unavailable [phone] Encounter Details Date Type Department Care Team (Latest Contact Info) Description 03/06/2023 Transcribe Orders Virtual Department [address] [place] [address] Roshan Noriega MD [address] [place] [address] [address] [place], [place] [id number] [email or web address] Breast screening (Primary Dx) Social History Tobacco Use Types Packs/Day Years Used Date Smoking Tobacco: Never Smokeless Tobacco: Never Alcohol Use Standard Drinks/Week Comments No 0 (1 standard drink = 0.6 oz pur e alcohol) Education Answer Date Recorded Are you interested in more education? Not on karoline e 09/06/2022 Are you concerned about learning? Not on file 09/06/2022 No 09/06/2022 No 09/06/2022 Digital Access Answer Date Recorded No 10/05/2022 No 10/05/2022 Reliable internet access at home? Not on file 10/05/2022 Device with a working camera? Not on file Comments No Sex and Gender Information Value Date Recorded Sex Assigned at Female 11/10/2017 9:19 AM EDT Legal Sex Female 9:45 PM EDT Gender Identity Female 11/10/2017 9:19 AM EDT Sexual Orientation Straight 11/10/2017 9: 19 AM EDT documented as of this encounter Plan of Treatment Upcoming Encounters Date Type Department Care Team (Late st Contact Info) Description 04/12/2025 11:20 AM EST Office Visit [facility] [address] [place] [address] [place] [address] Susie Krueger, HARRIET [address] [place] [address], [address] [place] [phone] [email or web address] documented as of this encounter Results * BI MAMMOGRAM SCREENING WITH TOMOSYNTHESIS WITH CAD (BILATERAL) (04/11/2023 8:42 AM EST) Anatomical Region Laterality Modality Breast Left, Breast Right, Breast Bilateral Bila teral Mammography 04/11/2023 12:0 4 PM EST Impressions 04/11/2023 12:13 PM EST No mammographic evidence of malignancy in either breast. Annual screening mammography is recommended. BI-RADS CATEGORY: 1 - Negative. The patient will be notified of the results and recommendations. Narrative 04/11/2023 12:13 PM EST BI MAMMOGRAM SCREENING WITH TOMOSYNTHESIS WITH CAD (BILATERAL) Additional patient information: Screening. COMPARISON: Comparison is made with relevant prior imaging. Breast composition: There are scattered fibroglandular densities. FINDINGS: There has been no change in the mammographic findings since previous examination. No abnormal masses, suspicious calcifications, or other significant findings are identified mammographically in either breast. Procedure Note Henry Christianson MD - 04/11/2023 BI MAMMOGRAM SCREENING WITH TOMOSYNTHESIS WITH CAD (BILATERAL) Additional patient information: Screening. COMPARISON: Comparison is made with relevant prior imaging. Breast composition: There are scattered fibroglandular densities. FINDINGS: There has been no change in the mammographic findings since previousexamination. No abnormal masses, suspicious calcifications, or other significantfindings are identified mammographically in either breast. IMPRESSION: No mammographic evidence of malignancy in either breast. Annual screening mammography is recommended. BI-RADS CATEGORY: 1 - Negative. The patient will be notified of the results and recommendations. Roshan Noriega MD IMG MG EXAMS Final Result documented in this encounter Visit Diagnoses Diagnosis Breast screening- Primary Breast screening, unspecified Breast screening Breast screening, unspecified documented in this encounter Additional Health Concerns Assessment Noted Time PHQ-2 Depression Total Score: 2 01/09/20 4:02 PM EDT documented as of this encounter Care Teams Mobile Unit Assistant Relationship Specialty Start Date End Date Roshan Noriega MD [address] [facility] [address] [place] [address] [email or web address] PCP - General Family Medicine 08/29/22 03/19/23 Roshan Noriega MD [address] [facility] [address] [place] [address] [email or web address] PCP - General Family Medicine 03/20/23 Xu Garner DO [address] [place] [address] [address] [place] [address] [email or web address] Historical LMR Provider 03/01/17 Qi Resendiz DO [address] [place] [address] 7 [place] [address] Historical LMR Provider 03/01/17 Alis Roque FNP [address] [place] [phone] Historical LMR Provider 03/01/17 Nahum Guzman MD [address] [place] [address], [address] [place] [address] Historical LMR Provider 03/01/17 Kristofer Gray MD [address] [place] [phone] [email or web address] Historical LMR Provider 03/01/17 Yasir Tejeda MD [address] [place] [address] [email or web address] Historical LMR Provider 03/01/17 Dalia Esparza MD [address] [place] [address] [email or web address] Historical LMR Provider 03/01/17 Aysha Burdick, [facility] [address] [place] [address] [email or web address] Social Work 03/31/24 04/27/24 documented as of this encounter Additional Source Comments The information contained in this document represents components of the legal health record. It is not the complete legal health record.[facility]
== END 2024-12-23 10:33 | disposition home or self-care (01) ==
LOC: HO.XRAY 10:32
PROVIDERS: Visit Provider Nurse Practitioner Family
DX: N20.0 Calculus of kidney (principal); R10.9 Unspecified abdominal pain
CPT/HCPCS: 74018

== ENCOUNTER → 2024-12-23 10:38 | Outpatient (BNV) | payer OTHER, SELFPAY | PROVIDERS: Visit Provider Radiology Diagnostic Radiology | DX: R10.9 Unspecified abdominal pain (principal) | CPT/HCPCS: 74018 ==

== ENCOUNTER 2025-02-23 10:53 | Outpatient (REF) | payer OTHER, SELFPAY ==
--- NOTE | ~2025-02-23 | US_ITS ---
CLINICAL HISTORY: N20.0 - Calculus of kidney Retroperitoneal ultrasound Comparison: US - US RENAL BI - 11/15/24 10:31 EDT US/SR - US RETROPERITONEUM - 04/30/24 10:06 EST Findings: The kidneys are normal in echotexture bilaterally. No hydronephrosis. Left nephrolithiasis measuring 5 mm, Also present on the prior study. The right kidney is normal in size, measuring 12.4cm in length. The left kidney is normal in size, measuring 12.4cm in length. Impression: No acute findings. This document has been electronically signed by: Chari Sood MD on 02/24/2025 15:11:39
--- OUTSIDE RECORDS SUMMARY | 2025-02-23 13:19 | XMS_ITS | Patient Health Record ---
[facility] Address [address] [place] [address] Care Team Providers Care Legal Contracts Specialist Name Role Phone Amarjit Noriegaurav Primary Care Provider Jessy Mei Unavailable [phone] Allergies Allergen (clinical drug ingredient) Drug/Non Drug [...] Problem Acquired hammer toe of right foot (7728443774366022 ) Other hammer toe(s) (acquired), right foot (M20.41) Active confirmed Problem Acquired hammer toe of left foot (9232429880343916 ) Other hammer toe(s) (acquired), left foot (M20.42) Active confirmed Problem Plantar wart (40984904) Plantar wart (B07.0) Active confirmed Problem Polyneuropathy due to type 2 diabetes mellitus (307004751) Type 2 diabetes mellitus with diabetic polyneuropathy (E11.42) Active confirmed Vital Signs Blood pressure diastolic 70 mm Hg 11/08/2024 Height 5FT 4IN in 11/08/2024 Blood pressure systolic 130 mm Hg 11/08/2024 Weight 280 lbs 11/08/2024 BMI 48.06 kg/m2 11/08/2024 Encounters Encounter Location Date Provider Diagnosis [address] [address] 08/16/2024 Jessy Roman Type 2 diabetes mellitus with diabetic polyneuropathy E11.42 ; Other hammer toe(s) (acquired), right foot M20.41 ; Tinea unguium B35.1 ; Plantar wart B07.0 ; Left foot pain M79.672 and Other hammer toe(s) (acquired), left foot M20.[address] [address] 11/08/2024 Jessy Roman Type 2 diabetes mellitus with diabetic polyneuropathy E11.42 ; Other hammer toe(s) (acquired), right foot M20.41 ; Tinea unguium B35.1 ; Plantar wart B07.0 ; Left foot pain M79.672 and Other hammer toe(s) (acquired), left foot M20.[address] [facility] [place] [address] 06/16/2024 Jessy Roman [facility] [address] [place] [address] 07/29/2024 Jessy Roman Assessments Encounter Date Diagnosis [...] Treatment Next Appt Details Provider Name:Jessy dorman, 03/07/2025 01:45:00 PM, [address] [facility], [place], [address], Insurance Providers Payer Name Payer Address Payer Phone Subscriber Number Group Number Insured Name Patient Relationship to Insured Coverage Start Date Coverage End Date [facility] [address] [place] [address] [id number] Eddy Sanchez Self - patient is the insured Medical (General) History Medical History History ICD Code Anxiety Arthritis Back,Hip,and Knee pain Broken bones Cataracts covid-19 Depression Diabetic Diverticulosis Headaches/Migraines High Blood Pressure Stroke Measles Chicken pox Asthma Surgical History Surgery Date(Month/Year) kidney stones 02/01 cataract surgery appendectomy retinal detachment sx Hospitalization History Reason Date(Month/Year) UTI 10/03
== END 2025-02-23 10:54 | disposition home or self-care (01) ==
LOC: HO.HMGCX 10:53
PROVIDERS: PCP Family Medicine; Visit Provider Nurse Practitioner Family
DX: N20.0 Calculus of kidney (principal)
CPT/HCPCS: 76775

== ENCOUNTER → 2025-02-23 10:55 | Outpatient (BNV) | payer OTHER, SELFPAY | PROVIDERS: PCP Family Medicine; Visit Provider Radiology Diagnostic Radiology | DX: N20.0 Calculus of kidney (principal) | CPT/HCPCS: 76775 ==